=== PATIENT | female | born 1940 | race Caucasian/White ===

== ENCOUNTER 2017-01-02 18:20 | Inpatient (IN) | payer MEDICARE ==
[~2017-01-02] VITALS: Ht 170.2 cm; Wt 67.5 kg
[~2017-01-02 18:20] MED LIST: ATOR40TA68 PO; CARV6.2579 PO; FURO-110 PO; VALS40TA2 PO
[2017-01-02] MEDS ORDERED: FUROSEMIDE 40 MG INJ IV STA (19:49)
[2017-01-02 20:18] LABS: BASOPHILS % 0.5 % (0.0-2.0); EOSINOPHILS # 0.1 10^3/ul (0.0-0.5); EOSINOPHILS % 0.9 % (0.0-7.0); HEMATOCRIT 37.6 % (37.0-47.0); HEMOGLOBIN 11.9 g/dl (12.0-16.0); LYMPHOCYTES # 1.5 10^3/ul (0.8-2.9); LYMPHOCYTES % 20.2 % (15.0-51.0); MEAN CORPUSCULAR HEMOGLOBIN 28.2 pg (29.0-33.0); MEAN CORPUSCULAR HGB CONC 31.6 g/dl (32.0-37.0); MEAN CORPUSCULAR VOLUME 89.1 fl (82.0-101.0); MONOCYTE # 0.7 10^3/ul (0.3-0.9); MONOCYTES % 9.4 % (0.0-11.0); NEUTROPHIL # 5.2 10^3/ul (1.6-7.5); NEUTROPHILS % 68.7 % (39.0-77.0); PLATELET COUNT 155 10^3/UL (140-415); RED BLOOD COUNT 4.22 10^6/ul (4.20-5.40); RED CELL DISTRIBUTION WIDTH 18.2 % (11.5-14.5); WHITE BLOOD COUNT 7.5 10^3/ul (4.8-10.8)
[2017-01-02] MEDS ORDERED: CARV3.1260 PO (20:29)
[2017-01-02] MEDS ORDERED: AMIO200T2 PO (20:30)
[2017-01-02] MEDS ORDERED: VALS40TA2 PO (20:30)
[2017-01-02] MEDS ORDERED: LEVO100T87 PO (20:30)
[2017-01-02 20:41] LABS: INR 1.21; PROTIME 15.4 Sec (12.2-14.2); PT RATIO 1.2
[2017-01-02 20:42] LABS: PARTIAL THROMBOPLASTIN TIME 30.6 Sec (25.0-35.0)
[2017-01-02 20:45] LABS: ALANINE AMINOTRANSFERASE 38 IU/L (13-69); ALBUMIN 3.4 g/dl (3.3-4.9); ALBUMIN/GLOBULIN RATIO 1.21; ALKALINE PHOSPHATASE 98 IU/L (42-121); ANION GAP 21 (8-16); ASPARTATE AMINO TRANSFERASE 20 IU/L (15-46); BILIRUBIN,INDIRECT 0.5 mg/dl (0-1.1); BILIRUBIN,TOTAL 0.5 mg/dl (0.2-1.3); BLOOD UREA NITROGEN 48 mg/dl (7-20); CARBON DIOXIDE 21 mmol/L (21-31); CHLORIDE 101 mmol/L (97-110); CREATININE 2.24 mg/dl (0.44-1.00); GLUCOSE 101 mg/dl (70-220); POTASSIUM 4.6 mmol/L (3.5-5.1); SODIUM 138 mmol/L (135-144); TOTAL PROTEIN 6.2 g/dl (6.1-8.1)
[2017-01-02 20:57] LABS: TROPONIN-I < 0.012 ng/ml (0.00-0.12)
[2017-01-02 21:12] LABS: B-TYPE NATRIURETIC PEPTIDE 52000 PG/ML (0-125)
[2017-01-03] VITALS (10 sets, daily range): BP systolic 100–117; BP diastolic 74–93; PULSE 80–94; RESP 16–18; Ht 170.2 cm; Wt 67.5 kg
--- NOTE | 2017-01-03 02:22 | RADRPT ---
PROCEDURE: XR Chest. CLINICAL INDICATION: Chest pain TECHNIQUE: Portable single view of the chest COMPARISON: 05/17/2015 FINDINGS: Again seen is cardiomegaly with ectatic and tortuous aorta. Slight left base subsegmental atelectas is. Increased left base opacity may all be due to cardiomegaly or underlying airspace disease. . P ossible small left effusion. Small right pleural effusion is seen slight hazy infiltrate of the righ t lung base which could be due to early infectious infiltrate. IMPRESSION: Cardiomegaly. Slightly increased left retrocardiac opacity may all be due to cardiomegaly although underlying airspace disease cannot be completely excluded. Lateral view could be obtained if indica alex clinically. Question early right base infiltrate. Small right effusion and possible small left effusion. RPTAT: [facility]BE Physician Bob Date Time Electronically viewed and signed by Leonarda Nieto Physician on 01/03/2017 02:21 LE/
[2017-01-03] MEDS ORDERED: ONDANSETRON 4 MG INJ IV PRN (03:30)
[2017-01-03] MEDS ORDERED: ACETAMINOPHEN 325 MG TAB PO PRN (03:30)
[2017-01-03] MEDS ORDERED: NACL 0.9% 3 ML SYG IV SCH (03:30)
[2017-01-03] MEDS ORDERED: BISACODYL (EC) 5 MG TAB PO PRN (03:30)
[2017-01-03] MEDS ORDERED: DOCUSATE SODIUM 100 MG CAP PO PRN (03:30)
[2017-01-03] MEDS ORDERED: HEPARIN 5,000 UNIT/0.5 ML VIAL SC SCH (06:00)
[2017-01-03] MEDS: PANTOPRAZOLE 40 MG INJ IV SCH (06:01)
--- NOTE | 2017-01-03 07:28 | HP ---
Date/Time of Note Date/Time of Note DATE: 01/03/17 TIME: 07:12 Assessment/Plan VTE Prophylaxis VTE Prophylaxis Intervention: SCD's Lines/Catheters IV [facility]from [facility] Saline Lock Assessment/Plan Chief Complaint/Hosp Course This is a 76-year-old female being admitted to the telemetry floor for: #1 acute systolic CHF exacerbation: Patient's EKG is irregularly irregular with a left bundle branch block. BNP is 52,000. Patient's last echocardiogram on record was in 2014 with an EF of approximately 15%. At the current time will provide patient with IV diuresis. She states that over the last few days she has not been urinating much despite her home diuresis. Will add metolazone 2.5 mg to be given 30 minutes before Lasix. Will order a 2D echocardiogram. Will consult cardiology. She remains chest pain-free. Will trend cardiac enzymes. Will check a TSH and hemoglobin A1c. Continue amiodarone and carvedilol at this time. #2 acute on chronic kidney injury: Patient has creatinine above 2 her last creatinine was 0.88 in 2014. Will continue to monitor renal function while we initiate diuresis for her heart failure. Will consult nephrology for further treatment strategy. Will order renal ultrasound. As well as urine labs. #3 history of aortic dissection/aneurysm: Patient had a previous history which was medically managed there was recommendation for possible surgery in the past however patient was not deemed at that time to be stable secondary to her low ejection fraction. Will continue to monitor this at this time. Will order echocardiogram. May need further imaging studies to assess for current status of the previously found aneurysm. #4 hypertension: We will hold losartan for right now. #4 DVT and GI prophylaxis: Heparin subcu, protonix Further treatment strategy will be implemented as per the clinical course Problems: HPI/ROS Admit Date/Time Admit Date/Time Jan 03, 2017 at 03:25 Hx of Present Illness Chief complaint: Shortness of breath 1 week This is a 76-year-old female with a history of CHF as well as aortic dissection who presents to the ED with shortness of breath 1 week. Patient states she denies any chest pain. She has noticed that she has been getting more swollen in her lower extremities as well as her abdomen. She reports an approximate 20 pound weight gain over the last week or so in fluid. Allergies: Losartan, shellfish Medications: See Aug Const: As per HPI Eyes : No pain discharge or redness or change in visual acuity ENT: No pain, sore throat, congestion, congestion, dysphagia or discharge Respiratory: As per HPI Cardiovascular: As per HPI GI : As per HPI Genitourinary: No dysuria, hematuria, flank pain , discharge or CVA tenderness Musculoskeletal: No joint pain, back pain, neck pain, restricted range of motion in neck or joints Skin: No rash, bruising or hives Neuro: No headache, dizziness, syncope, seizure, focal weakness Endocrine: No polyuria, polydipsia, temperature intolerance Psych: No hallucination, depression, anxiety or suicidal ideation Vascular: As per HPI PMH/Family/Social Past Medical History CHF, 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 HEENT: Atraumatic, normocephalic. The pupils are equal, round and reactive. Extraocular motor are intact Neck: Supple with full range of motion. No rigidity or meningismus Chest: Nontender Lungs: Mild crackles at the lung bases, no wheezing, no respiratory distress. Heart: Normal S1-S2, Regular rhythm and rate. No murmur, S3, or S4 Abdomen: Soft, distended, normal bowel sounds, nontender to palpation. Extremities: 2+ pitting edema of the bilateral lower extremities from the feet up to the level of the villatoro Neurologic: Normal mental status, speech normal, cranial nerves II through XII are intact, motor and sensory are intact, no focal weakness Additional Comments PROCEDURE: XR Chest. CLINICAL INDICATION: Chest pain TECHNIQUE: Portable single view of the chest COMPARISON: 05/17/2015 FINDINGS: Again seen is cardiomegaly with ectatic and tortuous aorta. Slight left base subsegmental atelectasis. Increased left base opacity may all be due to cardiomegaly or underlying airspace disease. . Possible small left effusion. Small right pleural effusion is seen slight hazy infiltrate of the right lung base which could be due to early infectious infiltrate. IMPRESSION: Cardiomegaly. Slightly increased left retrocardiac opacity may all be due to cardiomegaly although underlying airspace disease cannot be completely excluded. Lateral view could be obtained if indicated clinically. Question early right base infiltrate. Small right effusion and possible small left effusion. Labs Result Diagram: 01/02/17 1950 01/02/17 1950 Medications Medications Current Medications Ondansetron HCl (Zofran Inj) 4 mg Q6H PRN IV NAUSEA AND/OR VOMITING; Start at 03:30 Acetaminophen (Tylenol Tab) 650 mg Q6H PRN PO PAIN LEVEL 1-3 OR FEVER; Start at 03:30 Docusate Sodium (Colace) 100 mg Q12H PRN PO CONSTIPATION; Start 01/03/17 at 03: 30 Bisacodyl (Dulcolax) 5 mg DAILY PRN PO CONSTIPATION; Start 01/03/17 at 03:30 Pantoprazole (Protonix Iv) 40 mg DAILY@06 IV Last administered on 01/03/17 06: 01; Admin Dose 40 MG; Start 01/03/17 at 06:00 Heparin Sodium (Porcine) (Heparin (5000 Units/0.5 ml)) 5,000 unit Q8 SC Last administered on 01/03/17 06:06; Admin Dose 5,000 UNIT; Start 01/03/17 at 06:00 Metolazone (Zaroxolyn) 2.5 mg DAILY PO ; Start 01/03/17 at 07:30 MINH SCHRADER Jan 03, 2017 07:24
[2017-01-03] MEDS: METOLAZONE 2.5 MG TAB PO SCH ×2 (08:16→09:00)
[2017-01-03 08:43] LABS: BASOPHILS % 0.6 % (0.0-2.0); EOSINOPHILS # 0.1 10^3/ul (0.0-0.5); EOSINOPHILS % 0.8 % (0.0-7.0); HEMATOCRIT 37.6 % (37.0-47.0); HEMOGLOBIN 12.1 g/dl (12.0-16.0); LYMPHOCYTES # 1.5 10^3/ul (0.8-2.9); LYMPHOCYTES % 22.8 % (15.0-51.0); MEAN CORPUSCULAR HEMOGLOBIN 28.7 pg (29.0-33.0); MEAN CORPUSCULAR HGB CONC 32.2 g/dl (32.0-37.0); MEAN CORPUSCULAR VOLUME 89.3 fl (82.0-101.0); MEAN PLATELET VOLUME 10.7 fl (7.4-10.4); MONOCYTE # 0.5 10^3/ul (0.3-0.9); MONOCYTES % 8.2 % (0.0-11.0); NEUTROPHIL # 4.4 10^3/ul (1.6-7.5); NEUTROPHILS % 67.1 % (39.0-77.0); PLATELET COUNT 148 10^3/UL (140-415); RED BLOOD COUNT 4.21 10^6/ul (4.20-5.40); RED CELL DISTRIBUTION WIDTH 17.7 % (11.5-14.5); WHITE BLOOD COUNT 6.6 10^3/ul (4.8-10.8)
[2017-01-03 08:55] LABS: CREATINE KINASE 45 IU/L (23-200)
[2017-01-03 08:59] LABS: ALBUMIN 2.9 g/dl (3.3-4.9); ALBUMIN/GLOBULIN RATIO 1.07; BILIRUBIN,INDIRECT 0.7 mg/dl (0-1.1); BILIRUBIN,TOTAL 0.7 mg/dl (0.2-1.3); CALCIUM 9.3 mg/dl (8.4-10.2); CHOL/HDL RATIO 4.8 RATIO; CREATININE 2.16 mg/dl (0.44-1.00); POTASSIUM 4.2 mmol/L (3.5-5.1); TOTAL PROTEIN 5.6 g/dl (6.1-8.1)
[2017-01-03 09:09] LABS: CK-MB 3.34 ng/ml (0.0-2.4)
[2017-01-03 09:13] LABS: TROPONIN-I < 0.012 ng/ml (0.00-0.12)
--- NOTE | 2017-01-03 09:44 | RADRPT ---
PROCEDURE: Retroperitoneal US. CLINICAL INDICATION: LINO TECHNIQUE: Multiple sonographic images of the retroperitoneum were obtained. The images were revi ewed on a PACS workstation. COMPARISON: Renal ultrasound from 05/11/2015 FINDINGS: The right kidney measures 8.8 cm. The left kidney measures 8.9 cm. The renal parenchymal echotexture is increased bilaterally. There is no hydronephrosis. There is no focal renal mass or calcification seen. There is a 1.8 cm simple cyst in the lower pole of the left kidney. There is a 1.3 cm simple cyst in the upper pole of the left kidney. There is a 1.3 cm simple cyst in the lower pole of the right kidney. There is a 1.6 cm simple cyst in the midpole of the right kidney. The bladder is grossly unremarkable. Mild ascites is incidentally noted. IMPRESSION: Atrophic and echogenic kidneys are again noted consistent with medical renal disease. Simple bilateral renal cysts measuring up to 1.6 cm on the right and 1.8 cm on the left. The bladder is grossly unremarkable. Mild ascites is incidentally noted. RPTAT: EE Physician Edgar Date Time Electronically viewed and signed by Physician Edgar on 01/03/2017 09:44 /
[2017-01-03] MEDS: FUROSEMIDE 40 MG INJ IV SCH ×2 (09:55→18:21)
[2017-01-03] MEDS: AMIODARONE 200 MG TAB PO SCH (09:56)
--- NOTE | 2017-01-03 10:22 | CONS ---
Date/Time of Note Date/Time of Note DATE: 01/03/17 TIME: 10:22 Assessment/Plan Assessment/Plan Additional Assessment/Plan 1. Acute kidney injury vs Acute kidney injury on CKD due to cardiorenal syndrome and hemodynamics 2. Acute CHF, acute on chronic, possibel systolic 3. Cardiomyopathy with EF 15%- ECHO in 2014 showed EF 15% 4. h/o aortic aneurysm/dissection 5. H/o CVA with left sided weakness 6. hypertension 7. Hyperlipidemia 8. atrial fibrillation plan: Continue lasix 40mg IV BID with metolazone ECHO and cardiology consutl has been orderd Urine studies including Urine sodium, urport/cr ratio, urine eosinophils, CK total, Uric acid pt likely has previous CKD but she was not aware about it Continue other meds we will continue to follow up on patient anticoagulation as per Primary and cardiology no ACEI/ARB at this time due to elevated creatinine- no previous baseline cr available, in 2014- pt Cr was fluctuating at low between 1.5 to 2.0- will monitor it in next 1-2 days thanks for consultation, will continue to follow up on patient, total time spent is more than 60minutes Consultation Date/Type/Reason Admit Date/Time Jan 03, 2017 at 03:25 Date of Consultation: Jan 03, 2017 Type of Consultation: NEPHROLOGY Reason for Consultation acute Kidney injury vs Acute kidney injury on CKD, cardiorenal syndrome Referring Provider: MINH SCHRADER Hx of Present Illness 76-year-old female with a history of CHF as well as aortic dissection who presents to the ED with shortness of breath 1 week. Patient states she denies any chest pain. She has noticed that she has been getting more swollen in her lower extremities as well as her abdomen. She reports an approximate 20 pound weight gain over the last week or so in fluid. as per patient she has never seen dry dip worker as outpatient, no H/o kidney cyst, no h/o kidney stone, no Famiily h/o CKD. no H/o NSAID use Constitutional: no complaints Eyes: no complaints ENT: no complaints Respiratory: shortness of breath, wheezing Cardiovascular: chest pain Gastrointestinal: no complaints Genitourinary: no complaints Musculoskeletal: no complaints, swelling Skin: no complaints Neurologic: no complaints Endocrine: no complaints Lymphatic: no complaints Psychological: no complaints Past Medical History Medical History: high cholesterol, hypertension, other (Cardiomyopathy with posible EF 15% as per patient , CAD s/p stent placement, anxiety, CVA with left sided weakness ) Past Surgical History Past Surgical Hx: other (right hip surgery ) Family History Significant Family History: no pertinent family hx, other (pt denies h/o CKD/ CAD/Stroke in family ) Social History Alcohol Use: none Smoking Status: Never smoker Drug Use: none Exam/Review of Systems Vital Signs Vitals Vital Signs Date Time Temp Pulse Resp B/P Pulse Ox O2 Delivery O2 Flow Rate FiO2 01/03/17 08:29 94 01/03/17 07:52 98.0 18 117/93 96 01/03/17 05:38 Nasal Cannula 2.0 Exam Constitutional: alert, oriented Psych: no complaints Head: normocephalic Eyes: nl conjunctiva ENMT: nl external ears & nose Neck: supple Respiratory: crackles/rales, diminished breath sounds Cardiovascular: irregular rhythm, regular rate and rhythm Gastrointestinal: non-tender, soft Genitourinary - Female: other (deferred) Musculoskeletal: nl extremities to inspection, other (1+ edema ) Extremities: normal pulses Neurological: 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 II-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 intact Skin: nl turgor Lymph: nl lymph nodes Results Result Diagram: 01/03/17 0825 01/03/17 0825 Results 24 hrs Laboratory Tests Test 01/02/17 19:50 01/03/17 07:46 01/03/17 08:25 White Blood Count 7.5 # 6.6 Red Blood Count 4.22 4.21 Hemoglobin 11.9 L 12.1 Hematocrit 37.6 37.6 Mean Corpuscular Volume 89.1 89.3 Mean Corpuscular Hemoglobin 28.2 L 28.7 L Mean Corpuscular Hemoglobin Concent 31.6 L 32.2 Red Cell Distribution Width 18.2 #H 17.7 H Platelet Count 155 148 Mean Platelet Volume 11.0 H 10.7 H Neutrophils % 68.7 67.1 Lymphocytes % 20.2 22.8 Monocytes % 9.4 8.2 Eosinophils % 0.9 0.8 Basophils % 0.5 0.6 Nucleated Red Blood Cells % 0.0 0.0 Neutrophils # 5.2 4.4 Lymphocytes # 1.5 1.5 Monocytes # 0.7 0.5 Eosinophils # 0.1 0.1 Basophils # 0.0 0.0 Nucleated Red Blood Cells # 0.0 0.0 Prothrombin Time 15.4 H Prothrombin Time Ratio 1.2 INR International Normalized Ratio 1.21 Activated Partial Thromboplast Time 30.6 Sodium Level 138 138 Potassium Level 4.6 4.2 Chloride Level 101 99 Carbon Dioxide Level 21 24 Anion Gap 21 H 19 H Blood Urea Nitrogen 48 H 50 H Creatinine 2.24 H 2.16 H Glucose Level 101 81 Calcium Level 9.0 9.3 Total Bilirubin 0.5 0.7 Direct Bilirubin 0.00 0.00 Indirect Bilirubin 0.5 0.7 Aspartate Amino Transf (AST/SGOT) 20 18 Alanine Aminotransferase (ALT/SGPT) 38 40 Alkaline Phosphatase 98 95 Troponin I < 0.012 < 0.012 B-Type Natriuretic Peptide 66150 H Total Protein 6.2 5.6 L Albumin 3.4 2.9 L Globulin 2.80 2.70 Albumin/Globulin Ratio 1.21 1.07 Lab Scanned Report LAB Hemoglobin A1c 6.3 H Magnesium Level 2.0 Creatine Kinase 45 Creatine Kinase Index 7.4 Creatinine Kinase MB (Mass) 3.34 H Triglycerides Level 85 Cholesterol Level 164 LDL Cholesterol, Calculated 113 HDL Cholesterol 34 Cholesterol/HDL Ratio 4.8 Thyroid Stimulating Hormone (TSH) Pending Medications Medications Current Medications Ondansetron HCl (Zofran Inj) 4 mg Q6H PRN IV NAUSEA AND/OR VOMITING; Start at 03:30 Acetaminophen (Tylenol Tab) 650 mg Q6H PRN PO PAIN LEVEL 1-3 OR FEVER; Start at 03:30 Docusate Sodium (Colace) 100 mg Q12H PRN PO CONSTIPATION; Start 01/03/17 at 03: 30 Bisacodyl (Dulcolax) 5 mg DAILY PRN PO CONSTIPATION; Start 01/03/17 at 03:30 Pantoprazole (Protonix Iv) 40 mg DAILY@06 IV Last administered on 01/03/17 06: 01; Admin Dose 40 MG; Start 01/03/17 at 06:00 Heparin Sodium (Porcine) (Heparin (5000 Units/0.5 ml)) 5,000 unit Q8 SC Last administered on 01/03/17 06:06; Admin Dose 5,000 UNIT; Start 01/03/17 at 06:00 Metolazone (Zaroxolyn) 2.5 mg DAILY PO Last administered on 01/03/17 08:16; Admin Dose 2.5 MG; Start 01/03/17 at 07:30 Amiodarone HCl (Cordarone) 200 mg DAILY PO Last administered on 01/03/17 09:56 ; Admin Dose 200 MG; Start 01/03/17 at 09:00 Carvedilol (Coreg) 3.125 mg BID PO Last administered on 01/03/17 09:55; Admin Dose 3.125 MG; Start 01/03/17 at 09:00 TONIA GREGORY MD Jan 03, 2017 10:22
[2017-01-03] MEDS: APIXABAN 5 MG TABLET PO SCH ×2 (11:09→20:40)
[2017-01-03 12:05] LABS: THYROID STIMULATING HORMONE 14.4 MIU/L (0.465-4.680)
--- NOTE | 2017-01-03 12:34 | RADRPT ---
PROCEDURE: XR Chest. CLINICAL INDICATION: Abnormal chest x-ray TECHNIQUE: PA and Lateral views of the chest were obtained. COMPARISON: Chest x-ray 01/02/2017 and CTA chest 05/09/2015 FINDINGS: The cardiac silhouette is moderately enlarged. Again seen is aneurysmal dilatation of the thoracic aorta with related rightward tracheal deviation, not significantly changed compared to prior chest x-ray of 01/02/2017. Patchy ill-defined left retrocardiac opacities persist and may represent a small partially layering left pleural effusion, atelectasis, and / or consolidation. Minimal right basilar atelectasis process. There is no evidence of significant pulmonary vascular congestion. There are degenerative changes of the visualized spine. IMPRESSION: 1. Thoracic aortic aneurysmal dilatation, not significantly changed compared to immediate prior ches t x-ray of 01/02/2017. Direct comparison with prior CT chest of 05/09/2015 is difficult due to diffe rences in technique/modality. 2. Moderate cardiomegaly. 3. No significant change in patchy ill-defined left retrocardiac opacities which may represent atel ectasis, consolidation, and / or small partially layering left pleural effusion. RPTAT: PP Physician Debbie Date Time Electronically viewed and signed by Physician Debbie on 01/03/2017 12:34 /
[2017-01-03 13:06] LABS: CREATINE KINASE 43 IU/L (23-200)
[2017-01-03 13:18] LABS: CK-MB 3.03 ng/ml (0.0-2.4)
[2017-01-03 13:21] LABS: TROPONIN-I < 0.012 ng/ml (0.00-0.12)
[2017-01-03 13:37] LABS: UR BILIRUBIN (Dip) NEGATIVE (NEGATIVE); UR BLOOD (Dip) 1+ mg/dL (NEGATIVE); UR CLARITY CLOUDY (CLEAR); UR COLOR YELLOW (YELLOW); UR GLUCOSE (Dip) NEGATIVE (NEGATIVE); UR KETONES (Dip) NEGATIVE (NEGATIVE); UR SPECIFIC GRAVITY (Dip) 1.008 (1.003-1.030); UR TOTAL PROTEIN (Dip) NEGATIVE (NEGATIVE)
[2017-01-03 13:38] LABS: ADD UMIC YES; UR AMORPHOUS CRYSTAL MODERATE /HPF (NONE SEEN); UR ASCORBIC ACID NEGATIVE (NEGATIVE); UR BACTERIA FEW /HPF (NONE SEEN); UR LEUKOCYTE ESTERASE (Dip) 3+ Leu/ul (NEGATIVE); UR MUCUS FEW /HPF (NONE SEEN); UR NITRITE (Dip) POSITIVE (NEGATIVE); UR RBC 3 /HPF (0-5); UR SQUAMOUS EPITHELIAL CELL MANY /HPF (FEW); UR UROBILINOGEN (Dip) NEGATIVE (NEGATIVE)
[2017-01-03 13:59] LABS: PROTEIN/CREAT RATIO 0.31 RATIO
--- NOTE | 2017-01-03 14:32 | CONS ---
Date/Time of Note Date/Time of Note DATE: 01/03/17 TIME: 14:22 Assessment/Plan Assessment/Plan Additional Assessment/Plan Acute decompensated systolic congestive heart failure History of severe cardio myopathy Acute on chronic kidney injury Aortic aneurysm with history of chronic dissection Atrial fibrillation -Patient with improvement in symptoms since on IV Lasix therapy. We will continue diuretics as per our nephrology colleagues. Ideally maintain potassium above 4.0 and magnesium above 2.0 to decrease arrhythmias. ARB currently on hold likely secondary to worsening renal function. If blood pressure tolerates, would start afterload reducing agent in the next 1-2 days. Continue telemetry monitoring. Consultation Date/Type/Reason Admit Date/Time Jan 03, 2017 at 03:25 Type of Consultation: cv Reason for Consultation Shortness of breath and weight gain Hx of Present Illness This is a 76-year-old female with known past medical history of severe cardiomyopathy, aortic aneurysm with history of type B dissection, labile blood pressure who presents with increased lower extremity edema, weight gain and shortness of breath progressing over the past 10 days. Patient states she has been compliant with her medication regimen. Patient also symptoms of lightheadedness with standing up at times and occasional dizziness. Because of the above, patient came to the emergency room for further evaluation and care. Her symptoms have improved with IV diuresis. She denies paroxysmal nocturnal dyspnea. Shortness of breath is worse with exertion. He denies any chest pain , palpitations. 12 point review of systems was performed with all pertinent positives and negatives mentioned above and all else is negative Constitutional: no complaints Eyes: no complaints ENT: no complaints Respiratory: shortness of breath, wheezing Cardiovascular: chest pain Gastrointestinal: no complaints Genitourinary: no complaints Musculoskeletal: no complaints, swelling Skin: no complaints Neurologic: no complaints Endocrine: no complaints Lymphatic: no complaints Psychological: no complaints Past Medical History Aortic aneurysm Medical History: congestive heart failure, high cholesterol, hypertension, other Past Surgical History Past Surgical Hx: other (right hip surgery ) Social History Alcohol Use: none Smoking Status: Never smoker Drug Use: none Exam/Review of Systems Vital Signs Vitals Vital Signs Date Time Temp Pulse Resp B/P Pulse Ox O2 Delivery O2 Flow Rate FiO2 01/03/17 12:18 84 01/03/17 11:26 97.3 17 101/86 92 01/03/17 05:38 Nasal Cannula 2.0 Exam No apparent distress, no dyspnea with speaking, family at bedside Constitutional: alert, frail, oriented Head: normocephalic Neck: supple Respiratory: other (Coarse breath sounds bilaterally and decreased at the bases , no wheezing) Cardiovascular: irregular rhythm, other (S1-S2 heard), systolic murmur Gastrointestinal: bowel sounds, non-tender, soft Extremities: edema Results Result Diagram: 01/03/17 0825 01/03/17 0825 Results 24 hrs Laboratory Tests Test 01/02/17 19:50 01/03/17 07:46 01/03/17 08:25 01/03/17 10:52 White Blood Count 7.5 # 6.6 Red Blood Count 4.22 4.21 Hemoglobin 11.9 L 12.1 Hematocrit 37.6 37.6 Mean Corpuscular Volume 89.1 89.3 Mean Corpuscular Hemoglobin 28.2 L 28.7 L Mean Corpuscular Hemoglobin Concent 31.6 L 32.2 Red Cell Distribution Width 18.2 #H 17.7 H Platelet Count 155 148 Mean Platelet Volume 11.0 H 10.7 H Neutrophils % 68.7 67.1 Lymphocytes % 20.2 22.8 Monocytes % 9.4 8.2 Eosinophils % 0.9 0.8 Basophils % 0.5 0.6 Nucleated Red Blood Cells % 0.0 0.0 Neutrophils # 5.2 4.4 Lymphocytes # 1.5 1.5 Monocytes # 0.7 0.5 Eosinophils # 0.1 0.1 Basophils # 0.0 0.0 Nucleated Red Blood Cells # 0.0 0.0 Prothrombin Time 15.4 H Prothrombin Time Ratio 1.2 INR International Normalized Ratio 1.21 Activated Partial Thromboplast Time 30.6 Sodium Level 138 138 Potassium Level 4.6 4.2 Chloride Level 101 99 Carbon Dioxide Level 21 24 Anion Gap 21 H 19 H Blood Urea Nitrogen 48 H 50 H Creatinine 2.24 H 2.16 H Glucose Level 101 81 Calcium Level 9.0 9.3 Total Bilirubin 0.5 0.7 Direct Bilirubin 0.00 0.00 Indirect Bilirubin 0.5 0.7 Aspartate Amino Transf (AST/SGOT) 20 18 Alanine Aminotransferase (ALT/SGPT) 38 40 Alkaline Phosphatase 98 95 Troponin I < 0.012 < 0.012 B-Type Natriuretic Peptide 50800 H Total Protein 6.2 5.6 L Albumin 3.4 2.9 L Globulin 2.80 2.70 Albumin/Globulin Ratio 1.21 1.07 Lab Scanned Report LAB Hemoglobin A1c 6.3 H Magnesium Level 2.0 Creatine Kinase 45 Creatine Kinase Index 7.4 Creatinine Kinase MB (Mass) 3.34 H Triglycerides Level 85 Cholesterol Level 164 LDL Cholesterol, Calculated 113 HDL Cholesterol 34 Cholesterol/HDL Ratio 4.8 Thyroid Stimulating Hormone (TSH) 14.400 H Urine Color YELLOW Urine Clarity CLOUDY A Urine pH 5.0 Urine Specific Freeborn 1.008 Urine Ketones NEGATIVE Urine Nitrite POSITIVE A Urine Bilirubin NEGATIVE Urine Urobilinogen NEGATIVE Urine Leukocyte Esterase 3+ H Urine Microscopic RBC 3 Urine Microscopic WBC 37 H Urine Squamous Epithelial Cells MANY A Urine Amorphous Crystals MODERATE Urine Bacteria FEW A Urine Mucus FEW A Urine Eosinophils % 0.0 Urine Hemoglobin 1+ H Urine Osmolality 331 Urine Random Creatinine 41.70 Urine Random Sodium 95 H Urine Protein/Creatinine Ratio 0.31 Urine Glucose NEGATIVE Urine Total Protein 13.0 H Test 01/03/17 12:17 Creatine Kinase 43 Creatine Kinase Index 7.0 Creatinine Kinase MB (Mass) 3.03 H Troponin I < 0.012 Medications Medications Current Medications Ondansetron HCl (Zofran Inj) 4 mg Q6H PRN IV NAUSEA AND/OR VOMITING; Start at 03:30 Acetaminophen (Tylenol Tab) 650 mg Q6H PRN PO PAIN LEVEL 1-3 OR FEVER; Start at 03:30 Docusate Sodium (Colace) 100 mg Q12H PRN PO CONSTIPATION; Start 01/03/17 at 03: 30 Bisacodyl (Dulcolax) 5 mg DAILY PRN PO CONSTIPATION; Start 01/03/17 at 03:30 Pantoprazole (Protonix Iv) 40 mg DAILY@06 IV Last administered on 01/03/17 06: 01; Admin Dose 40 MG; Start 01/03/17 at 06:00 Metolazone (Zaroxolyn) 2.5 mg DAILY PO Last administered on 01/03/17 08:16; Admin Dose 2.5 MG; Start 01/03/17 at 07:30 Amiodarone HCl (Cordarone) 200 mg DAILY PO Last administered on 01/03/17 09:56 ; Admin Dose 200 MG; Start 01/03/17 at 09:00 Carvedilol (Coreg) 3.125 mg BID PO Last administered on 01/03/17 09:55; Admin Dose 3.125 MG; Start 01/03/17 at 09:00 Apixaban (Eliquis) 2.5 mg BID PO Last administered on 01/03/17 11:09; Admin Dose 2.5 MG; Start 01/03/17 at 10:30 Procedures Procedures ECG demonstrates atrial fibrillation at 89 bpm, left bundle branch block, nonspecific STT wave abnormalities Rubén Pettit DO Jan 03, 2017 14:32
--- NOTE | 2017-01-03 15:04 | RADRPT ---
Echocardiogram Report Patient Name: JENNIFER MOHAN Gender: Female Date: 1940 Study Date: 03-Jan-2017 Illustrator Set: Maya Gale [facility] Location: 512 Ref. Physician: MINH SCHRADER Quality: Good Procedures: Transthoracic echocardiogram with complete 2D, M-Mode, and doppler examination. Indications: Congestive Heart Failure exacerbation. 2D/M Mode Doppler Measurement Value Normal Ranges Measurement Value Normal Ranges LVIDd 2D 4.3 3.5 - 5.6 cm AV Peak Nic 1.4 m/sec LVIDs 2D 4.3 2.1 - 4.1 cm AV Peak PG 8.0 mmHg LVPWd 2D 1.4 0.6 - 1.1 cm AI Peak PG 97.9 mmHg IVSd 2D 1.5 0.6 - 1.1 cm AI Peak Nic 4.9 m/sec EDV 2D 85.0 cm3 AI PHT 340.7 msec ESV 2D 80.9 cm3 LVOT Peak Nic 1.3 m/sec LA Dimen 2D 4.3 2.3 - 4.0 cm LVOT Peak PG 6.5 mmHg MV E Peak Nic 0.7 m/sec MV A Peak Nic 0.3 m/sec MV E/A 2.1 MV Decel Time 127 msec MV Decel Coffey 6 MV E/A 2.1 TR Peak Nic 4.2 m/sec TR Peak PG 69.7 mmHg RVSP 85.0 mmHg Findings Left Ventricle: Moderate concentric left ventricular hypertrophy. Mild to moderate enlargement of left ventricle cavity. Severe left ventricular systolic dysfunction. Ejection fraction is visually estimated at 20 %. Abnormal Diastolic Function. Right Ventricle: Normal right ventricular size. Mild right ventricular hypokinesis. Left Atrium: There is mild enlargement of left atrium. Right Atrium: There is severe enlargement of right atrium. Mitral Valve: Mitral valve leaflets appear mildly thickened. Mild mitral annular calcification. Moderate mitral valve regurgitation. The regurgitation jet is eccentrically directed which may underestimate the severity of mitral regurgitation. Aortic Valve: No hemodynamically significant aortic stenosis by doppler. Aortic cusps appear mildly calcified. Moderate aortic valve regurgitation. Tricuspid Valve: Normal appearance of the tricuspid valve. Estimated peak PA systolic pressure 85 mmHg. Tricuspid valve appears mildly thickened. There is moderate to severe tricuspid regurgitation. Pulmonic Valve: Normal pulmonic valve appearance. There is trace pulmonic regurgitation. Pericardium: Normal pericardium with no significant pericardial effusion. Left pleural effusion seen. Aorta: Ascending aorta is dilated. IVC: Dilated IVC without respiratory collapse consistent with elevated right atrial pressure. Conclusions Moderate concentric left ventricular hypertrophy. Mild to moderate enlargement of left ventricle cavity. Severe left ventricular systolic dysfunction. Ejection fraction is visually estimated at 20 %. Abnormal Diastolic Function. Normal right ventricular size. Mild right ventricular hypokinesis. There is mild enlargement of left atrium. There is severe enlargement of right atrium. Moderate mitral valve regurgitation. The regurgitation jet is eccentrically directed which may underestimate the severity of mitral regurgitation. No hemodynamically significant aortic stenosis by doppler. Moderate aortic valve regurgitation. Estimated peak PA systolic pressure 85 mmHg. There is moderate to severe tricuspid regurgitation. Ascending aorta is dilated. Normal pericardium with no significant pericardial effusion. Left pleural effusion seen. Electronically Signed By: Rubén Pettit 03-Jan-2017 15:02:51 -0700 Patient Name: JENNIFER MOHAN Study Date: 03-Jan-2017 [id number]
[2017-01-04] VITALS (12 sets, daily range): BP systolic 96–120; BP diastolic 58–76; PULSE 69–86; RESP 17–20
[2017-01-04] MEDS: LEVOTHYROXINE 100 MCG TAB PO SCH (06:06)
[2017-01-04] MEDS: FUROSEMIDE 40 MG INJ IV SCH ×2 (06:07→18:19)
[2017-01-04] MEDS: PANTOPRAZOLE 40 MG INJ IV SCH (06:07)
[2017-01-04 08:14] LABS: BASOPHIL # 0.1 10^3/ul (0.0-0.1); BASOPHILS % 0.9 % (0.0-2.0); EOSINOPHILS # 0.1 10^3/ul (0.0-0.5); EOSINOPHILS % 1.6 % (0.0-7.0); HEMATOCRIT 37.2 % (37.0-47.0); HEMOGLOBIN 11.9 g/dl (12.0-16.0); LYMPHOCYTES # 1.5 10^3/ul (0.8-2.9); LYMPHOCYTES % 22.8 % (15.0-51.0); MEAN CORPUSCULAR HEMOGLOBIN 28.3 pg (29.0-33.0); MEAN CORPUSCULAR VOLUME 88.6 fl (82.0-101.0); MEAN PLATELET VOLUME 11.4 fl (7.4-10.4); MONOCYTE # 0.5 10^3/ul (0.3-0.9); MONOCYTES % 8.3 % (0.0-11.0); NEUTROPHIL # 4.2 10^3/ul (1.6-7.5); NEUTROPHILS % 65.9 % (39.0-77.0); PLATELET COUNT 166 10^3/UL (140-415); WHITE BLOOD COUNT 6.4 10^3/ul (4.8-10.8)
[2017-01-04 08:38] LABS: URIC ACID 13.1 mg/dl (3.1-7.9)
[2017-01-04 08:49] LABS: CALCIUM 9.1 mg/dl (8.4-10.2); CREATININE 2.31 mg/dl (0.44-1.00); POTASSIUM 4.2 mmol/L (3.5-5.1)
[2017-01-04] MEDS: METOLAZONE 2.5 MG TAB PO SCH (10:14)
[2017-01-04] MEDS: AMIODARONE 200 MG TAB PO SCH (10:14)
[2017-01-04] MEDS: APIXABAN 5 MG TABLET PO SCH ×2 (10:16→20:25)
[2017-01-04] MEDS ORDERED: BUMETANIDE 6 MG in DEXTROSE 5% 36 ML IV ONE (12:00)
--- NOTE | 2017-01-04 12:37 | CONS ---
Date/Time of Note Date/Time of Note DATE: 01/04/17 TIME: 12:35 Assessment/Plan Assessment/Plan Additional Assessment/Plan 1. Acute kidney injury vs Acute kidney injury on CKD due to cardiorenal syndrome and hemodynamics 2. Acute CHF, acute on chronic, possibel systolic 3. Cardiomyopathy with EF 15%- ECHO in 2014 showed EF 15% 4. h/o aortic aneurysm/dissection 5. H/o CVA with left sided weakness 6. hypertension 7. Hyperlipidemia 8. atrial fibrillation plan: Continue lasix 40mg IV BID, d/c metolazone to avoid overdiuresis ECHO showed EF 20% Renal Us showed bilateral renal simple cysts and C/w medical renal disease anticoagulation as per Primary and cardiology no ACEI/ARB at this time due to elevated creatinine- no previous baseline cr available, in 2014- pt Cr was fluctuating at low between 1.5 to 2.0- will monitor it in next 1-2 days and will consider ACEI/ARB after diuresis will continue to follow up on patient Consultation Date/Type/Reason Admit Date/Time Jan 03, 2017 at 03:25 Initial Consult Date 01/03/17 Type of Consultation: NEPHROLOGY Reason for Consultation Acute on chronic renal failure Referring Provider: MINH SCHRADER 24 HR Interval Summary Free Text/Dictation with IV lasix and metolazone, pt made good urine ouput, Cr slightly bumped Exam/Review of Systems Vital Signs Vitals Vital Signs Date Time Temp Pulse Resp B/P Pulse Ox O2 Delivery O2 Flow Rate FiO2 01/04/17 12:17 75 01/04/17 11:24 97.6 18 96/67 96 01/03/17 05:38 Nasal Cannula 2.0 Intake and Output 01/03/17 01/03/17 01/04/17 15:00 23:00 07:00 Intake Total 850 ml 300 ml Output Total 750 ml 1000 ml Balance 100 ml -700 ml Exam Constitutional: alert, oriented Psych: no complaints Head: normocephalic Eyes: nl conjunctiva ENMT: nl external ears & nose Neck: supple Respiratory: crackles/rales, diminished breath sounds Cardiovascular: irregular rhythm, regular rate and rhythm Gastrointestinal: non-tender, soft Genitourinary - Female: other (deferred) Musculoskeletal: nl extremities to inspection, other (1+ edema ) Extremities: normal pulses 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 Skin: nl turgor Lymph: nl lymph nodes Results Result Diagram: 01/04/17 0728 01/04/17 0728 Results 24 hrs Laboratory Tests Test 01/03/17 14:27 01/04/17 07:28 Osmolality 295 White Blood Count 6.4 Red Blood Count 4.20 Hemoglobin 11.9 L Hematocrit 37.2 Mean Corpuscular Volume 88.6 Mean Corpuscular Hemoglobin 28.3 L Mean Corpuscular Hemoglobin Concent 32.0 Red Cell Distribution Width 18.0 H Platelet Count 166 Mean Platelet Volume 11.4 H Neutrophils % 65.9 Lymphocytes % 22.8 Monocytes % 8.3 Eosinophils % 1.6 Basophils % 0.9 Nucleated Red Blood Cells % 0.0 Neutrophils # 4.2 Lymphocytes # 1.5 Monocytes # 0.5 Eosinophils # 0.1 Basophils # 0.1 Nucleated Red Blood Cells # 0.0 Sodium Level 137 Potassium Level 4.2 Chloride Level 100 Carbon Dioxide Level 24 Anion Gap 17 H Blood Urea Nitrogen 52 H Creatinine 2.31 H Glucose Level 79 Uric Acid 13.1 H Calcium Level 9.1 Magnesium Level 1.9 Creatine Kinase 30 Medications Medications Current Medications Ondansetron HCl (Zofran Inj) 4 mg Q6H PRN IV NAUSEA AND/OR VOMITING; Start at 03:30 Acetaminophen (Tylenol Tab) 650 mg Q6H PRN PO PAIN LEVEL 1-3 OR FEVER; Start at 03:30 Docusate Sodium (Colace) 100 mg Q12H PRN PO CONSTIPATION; Start 01/03/17 at 03: 30 Bisacodyl (Dulcolax) 5 mg DAILY PRN PO CONSTIPATION; Start 01/03/17 at 03:30 Pantoprazole (Protonix Iv) 40 mg DAILY@06 IV Last administered on 01/04/17 06: 07; Admin Dose 40 MG; Start 01/03/17 at 06:00 Amiodarone HCl (Cordarone) 200 mg DAILY PO Last administered on 01/04/17 10:14 ; Admin Dose 200 MG; Start 01/03/17 at 09:00 Carvedilol (Coreg) 3.125 mg BID PO Last administered on 01/04/17 10:14; Admin Dose 3.125 MG; Start 01/03/17 at 09:00 Apixaban 2.5 mg 2.5 mg BID PO Last administered on 01/04/17t 10:16; Admin Dose 2.5 MG; Start 01/03/17 at 10:30 Bumetanide/ Dextrose (Bumex/D5W) 60 ml @ 10 mls/hr Q6H ONCE IV ; Start 01/04/17 at 12:00; Stop 01/04/17 at 17:59 TONIA GREGORY MD Jan 04, 2017 12:37
--- NOTE | 2017-01-04 15:55 | PN ---
Date/Time of Note Date/Time of Note DATE: 01/04/17 TIME: 15:50 Assessment/Plan VTE Prophylaxis VTE Prophylaxis Intervention: LMWH Lines/Catheters IV Catheter Type (from Nrs): Saline Lock Urinary Cath still in place: Yes Reason Cath still needed: urinary retention Assessment/Plan Chief Complaint/Hosp Course 76 yo female with h/o NICM chronic systolic CHF presenting wtih acute on chronic CHF exacerbation and LINO Acute on chronic CHF exacerbation: - Continue IV lasix to euvolemia, many liters to go - BB, AILYN/dominique if renal function improved/stable LINO vs CKD III - Monitor creatinine, no clear etiology Discharge when euvolemic Problems: Subjective 24 Hr Interval Summary Free Text/Dictation Doing better she says Breathing more comfortably Diuresing well Exam/Review of Systems Vital Signs Vitals Vital Signs Date Time Temp Pulse Resp B/P Pulse Ox O2 Delivery O2 Flow Rate FiO2 01/04/17 15:09 97.9 65 18 103/66 96 01/03/17 05:38 Nasal Cannula 2.0 Intake and Output 01/03/17 01/03/17 01/04/17 15:00 23:00 07:00 Intake Total 850 ml 300 ml Output Total 750 ml 1000 ml Balance 100 ml -700 ml Exam Breathing comfotably, nonlabored AOx3, well appearing ++JVD, RRR Clear lungs bilaterally Ext wtih edema to calves b/l Results Result Diagram: 01/04/1728 01/04/17727 Results 24 hrs Laboratory Tests Test 01/04/17 07:28 White Blood Count 6.4 Red Blood Count 4.20 Hemoglobin 11.9 L Hematocrit 37.2 Mean Corpuscular Volume 88.6 Mean Corpuscular Hemoglobin 28.3 L Mean Corpuscular Hemoglobin Concent 32.0 Red Cell Distribution Width 18.0 H Platelet Count 166 Mean Platelet Volume 11.4 H Neutrophils % 65.9 Lymphocytes % 22.8 Monocytes % 8.3 Eosinophils % 1.6 Basophils % 0.9 Nucleated Red Blood Cells % 0.0 Neutrophils # 4.2 Lymphocytes # 1.5 Monocytes # 0.5 Eosinophils # 0.1 Basophils # 0.1 Nucleated Red Blood Cells # 0.0 Sodium Level 137 Potassium Level 4.2 Chloride Level 100 Carbon Dioxide Level 24 Anion Gap 17 H Blood Urea Nitrogen 52 H Creatinine 2.31 H Glucose Level 79 Uric Acid 13.1 H Calcium Level 9.1 Magnesium Level 1.9 Creatine Kinase 30 Medications Medications Current Medications Ondansetron HCl (Zofran Inj) 4 mg Q6H PRN IV NAUSEA AND/OR VOMITING; Start at 03:30 Acetaminophen (Tylenol Tab) 650 mg Q6H PRN PO PAIN LEVEL 1-3 OR FEVER; Start at 03:30 Docusate Sodium (Colace) 100 mg Q12H PRN PO CONSTIPATION; Start 01/03/17 at 03: 30 Bisacodyl (Dulcolax) 5 mg DAILY PRN PO CONSTIPATION; Start 01/03/17 at 03:30 Pantoprazole (Protonix Iv) 40 mg DAILY@06 IV Last administered on 01/04/17 06: 07; Admin Dose 40 MG; Start 01/03/17 at 06:00 Amiodarone HCl (Cordarone) 200 mg DAILY PO Last administered on 01/04/17 10:14 ; Admin Dose 200 MG; Start 01/03/17 at 09:00 Carvedilol (Coreg) 3.125 mg BID PO Last administered on 01/04/17 10:14; Admin Dose 3.125 MG; Start 01/03/17 at 09:00 Apixaban (Eliquis) 2.5 mg BID PO Last administered on 01/04/17 10:16; Admin Dose 2.5 MG; Start 01/03/17 at 10:30 SYDNIE ALONSO MD Jan 04, 2017 15:55
--- NOTE | 2017-01-04 17:36 | CONS ---
Date/Time of Note Date/Time of Note DATE: 01/04/17 TIME: 17:34 Assessment/Plan Assessment/Plan Additional Assessment/Plan Acute decompensated systolic congestive heart failure History of severe cardiomyopathy with ejection fraction 20% Acute on chronic kidney injury Aortic aneurysm with history of chronic dissection Atrial fibrillation -Patient with improvement in symptoms since on IV Lasix therapy. We will continue diuretics as per our nephrology colleagues. Ideally maintain potassium above 4.0 and magnesium above 2.0 to decrease arrhythmias. Will supplement magnesium. ARB currently on hold likely secondary to worsening renal function. If blood pressure tolerates, would start afterload reducing agent in the next 1-2 days. Continue telemetry monitoring. Consultation Date/Type/Reason Admit Date/Time Jan 03, 2017 at 03:25 Initial Consult Date 01/03/17 Type of Consultation: cv Referring Provider: MINH SCHRADER 24 HR Interval Summary Free Text/Dictation Shortness of breath has improved with diuretics, denies dizziness Exam/Review of Systems Vital Signs Vitals Vital Signs Date Time Temp Pulse Resp B/P Pulse Ox O2 Delivery O2 Flow Rate FiO2 01/04/17 16:28 70 01/04/17 15:09 97.9 18 103/66 96 01/03/17 05:38 Nasal Cannula 2.0 Intake and Output 01/03/17 01/03/17 01/04/17 15:00 23:00 07:00 Intake Total 850 ml 300 ml Output Total 750 ml 1000 ml Balance 100 ml -700 ml Exam No apparent distress Constitutional: alert, frail, oriented Head: normocephalic Respiratory: other (Coarse breath sounds bilaterally, no wheezing) Cardiovascular: irregular rhythm, other (S1-S2 heard), systolic murmur Gastrointestinal: bowel sounds, non-tender, soft Extremities: edema Results Result Diagram: 01/04/17 0728 01/04/1728 Results 24 hrs Laboratory Tests Test 01/04/17 07:28 White Blood Count 6.4 Red Blood Count 4.20 Hemoglobin 11.9 L Hematocrit 37.2 Mean Corpuscular Volume 88.6 Mean Corpuscular Hemoglobin 28.3 L Mean Corpuscular Hemoglobin Concent 32.0 Red Cell Distribution Width 18.0 H Platelet Count 166 Mean Platelet Volume 11.4 H Neutrophils % 65.9 Lymphocytes % 22.8 Monocytes % 8.3 Eosinophils % 1.6 Basophils % 0.9 Nucleated Red Blood Cells % 0.0 Neutrophils # 4.2 Lymphocytes # 1.5 Monocytes # 0.5 Eosinophils # 0.1 Basophils # 0.1 Nucleated Red Blood Cells # 0.0 Sodium Level 137 Potassium Level 4.2 Chloride Level 100 Carbon Dioxide Level 24 Anion Gap 17 H Blood Urea Nitrogen 52 H Creatinine 2.31 H Glucose Level 79 Uric Acid 13.1 H Calcium Level 9.1 Magnesium Level 1.9 Creatine Kinase 30 Medications Medications Current Medications Ondansetron HCl (Zofran Inj) 4 mg Q6H PRN IV NAUSEA AND/OR VOMITING; Start at 03:30 Acetaminophen (Tylenol Tab) 650 mg Q6H PRN PO PAIN LEVEL 1-3 OR FEVER; Start at 03:30 Docusate Sodium (Colace) 100 mg Q12H PRN PO CONSTIPATION; Start 01/03/17 at 03: 30 Bisacodyl (Dulcolax) 5 mg DAILY PRN PO CONSTIPATION; Start 01/03/17 at 03:30 Pantoprazole (Protonix Iv) 40 mg DAILY@06 IV Last administered on 01/04/17 06: 07; Admin Dose 40 MG; Start 01/03/17 at 06:00 Amiodarone HCl (Cordarone) 200 mg DAILY PO Last administered on 01/04/17 10:14 ; Admin Dose 200 MG; Start 01/03/17 at 09:00 Carvedilol (Coreg) 3.125 mg BID PO Last administered on 01/04/17 10:14; Admin Dose 3.125 MG; Start 01/03/17 at 09:00 Apixaban (Eliquis) 2.5 mg BID PO Last administered on 01/04/17 10:16; Admin Dose 2.5 MG; Start 01/03/17 at 10:30 Rubén Pettit DO Jan 04, 2017 17:36
[2017-01-04] MEDS ORDERED: FUROSEMIDE 40 MG INJ IV SCH (18:00)
[2017-01-04] MEDS ORDERED: MAGNESIUM SULFATE 1 GM/D5W 100 ML IVPB ONE (18:30)
[2017-01-05] VITALS (12 sets, daily range): BP systolic 106–116; BP diastolic 67–80; PULSE 61–75; RESP 19–20
[2017-01-05] MEDS: PANTOPRAZOLE 40 MG INJ IV SCH (06:24)
[2017-01-05] MEDS: LEVOTHYROXINE 100 MCG TAB PO SCH (06:24)
[2017-01-05] MEDS: FUROSEMIDE 40 MG INJ IV SCH ×2 (06:27→17:35)
[2017-01-05 08:01] LABS: BASOPHIL # 0.1 10^3/ul (0.0-0.1); BASOPHILS % 0.9 % (0.0-2.0); EOSINOPHILS # 0.1 10^3/ul (0.0-0.5); HEMATOCRIT 36.9 % (37.0-47.0); HEMOGLOBIN 11.9 g/dl (12.0-16.0); LYMPHOCYTES # 1.5 10^3/ul (0.8-2.9); LYMPHOCYTES % 22.2 % (15.0-51.0); MEAN CORPUSCULAR HEMOGLOBIN 28.6 pg (29.0-33.0); MEAN CORPUSCULAR HGB CONC 32.2 g/dl (32.0-37.0); MEAN CORPUSCULAR VOLUME 88.7 fl (82.0-101.0); MEAN PLATELET VOLUME 11.3 fl (7.4-10.4); MONOCYTE # 0.6 10^3/ul (0.3-0.9); MONOCYTES % 9.2 % (0.0-11.0); NEUTROPHIL # 4.3 10^3/ul (1.6-7.5); NEUTROPHILS % 65.2 % (39.0-77.0); PLATELET COUNT 171 10^3/UL (140-415); RED BLOOD COUNT 4.16 10^6/ul (4.20-5.40); RED CELL DISTRIBUTION WIDTH 17.9 % (11.5-14.5); WHITE BLOOD COUNT 6.6 10^3/ul (4.8-10.8)
[2017-01-05 08:33] LABS: MAGNESIUM 1.9 mg/dl (1.7-2.5); PHOSPHORUS 4.2 mg/dl (2.5-4.9)
[2017-01-05] MEDS: AMIODARONE 200 MG TAB PO SCH (08:36)
[2017-01-05 08:37] LABS: CALCIUM 8.8 mg/dl (8.4-10.2); CREATININE 2.16 mg/dl (0.44-1.00); POTASSIUM 3.9 mmol/L (3.5-5.1)
[2017-01-05] MEDS: APIXABAN 5 MG TABLET PO SCH ×2 (08:37→21:49)
[2017-01-05] MEDS ORDERED: POTASSIUM CHLORIDE (SR) 20 MEQ TAB PO STA (14:58)
[2017-01-05] MEDS ORDERED: MAGNESIUM SULFATE 2 GM/50 ML 50 ML IVPB ONE (15:30)
--- NOTE | 2017-01-05 16:17 | CONS ---
Date/Time of Note Date/Time of Note DATE: 01/05/17 TIME: 16:10 Assessment/Plan Assessment/Plan Additional Assessment/Plan Acute decompensated systolic congestive heart failure History of severe cardiomyopathy with ejection fraction 20% Acute on chronic kidney injury Aortic aneurysm with history of chronic dissection Atrial fibrillation -Patient continues to respond well to diuretic therapy with improvement in creatinine, 1 dose of metolazone today, maintain potassium above 4.0 and magnesium above 2.0. If blood pressure tolerates, will start hydralazine for afterload reduction. Consultation Date/Type/Reason Admit Date/Time Jan 03, 2017 at 03:25 Initial Consult Date 01/03/17 Type of Consultation: cv Referring Provider: MINH SCHRADER 24 HR Interval Summary Free Text/Dictation Shortness of breath continues to improve. Denies dizziness or lightheadedness, ambulating today and feeling better Exam/Review of Systems Vital Signs Vitals Vital Signs Date Time Temp Pulse Resp B/P Pulse Ox O2 Delivery O2 Flow Rate FiO2 01/05/17 15:55 98.2 73 19 116/67 94 01/04/17 08:00 Nasal Cannula 2.0 Intake and Output 01/04/17 01/04/17 01/05/17 15:00 23:00 07:00 Intake Total 250 ml 200 ml Output Total 1500 ml 800 ml Balance -1250 ml -600 ml Exam No apparent distress Constitutional: alert, frail, oriented Head: normocephalic Respiratory: other (Coarse breath sounds bilaterally, no wheezing) Cardiovascular: irregular rhythm, other (S1-S2 heard), systolic murmur Gastrointestinal: bowel sounds, non-tender, soft Extremities: edema Results Result Diagram: 01/05/17 0707 01/05/17 0707 Results 24 hrs Laboratory Tests Test 01/05/17 07:07 White Blood Count 6.6 Red Blood Count 4.16 L Hemoglobin 11.9 L Hematocrit 36.9 L Mean Corpuscular Volume 88.7 Mean Corpuscular Hemoglobin 28.6 L Mean Corpuscular Hemoglobin Concent 32.2 Red Cell Distribution Width 17.9 H Platelet Count 171 Mean Platelet Volume 11.3 H Neutrophils % 65.2 Lymphocytes % 22.2 Monocytes % 9.2 Eosinophils % 2.0 Basophils % 0.9 Nucleated Red Blood Cells % 0.0 Neutrophils # 4.3 Lymphocytes # 1.5 Monocytes # 0.6 Eosinophils # 0.1 Basophils # 0.1 Nucleated Red Blood Cells # 0.0 Sodium Level 137 Potassium Level 3.9 Chloride Level 96 L Carbon Dioxide Level 25 Anion Gap 20 H Blood Urea Nitrogen 54 H Creatinine 2.16 H Glucose Level 83 Calcium Level 8.8 Phosphorus Level 4.2 Magnesium Level 1.9 Parathyroid Hormone (Intact) Medications Medications Current Medications Ondansetron HCl (Zofran Inj) 4 mg Q6H PRN IV NAUSEA AND/OR VOMITING; Start at 03:30 Acetaminophen (Tylenol Tab) 650 mg Q6H PRN PO PAIN LEVEL 1-3 OR FEVER; Start at 03:30 Docusate Sodium (Colace) 100 mg Q12H PRN PO CONSTIPATION; Start 01/03/17 at 03: 30 Bisacodyl (Dulcolax) 5 mg DAILY PRN PO CONSTIPATION; Start 01/03/17 at 03:30 Pantoprazole (Protonix Iv) 40 mg DAILY@06 IV Last administered on 01/05/17 06: 24; Admin Dose 40 MG; Start 01/03/17 at 06:00 Amiodarone HCl (Cordarone) 200 mg DAILY PO Last administered on 01/05/17 08:36 ; Admin Dose 200 MG; Start 01/03/17 at 09:00 Carvedilol (Coreg) 3.125 mg BID PO Last administered on 01/05/17 08:36; Admin Dose 3.125 MG; Start 01/03/17 at 09:00 Apixaban 2.5 mg 2.5 mg BID PO Last administered on 01/05/17 08:37; Admin Dose 2.5 MG; Start 01/03/17 at 10:30 Magnesium Sulfate (Magnesium Sulfate 2 Gm/50 ml) 50 ml @ 25 mls/hr ONCE ONCE IVPB Last administered on 01/05/17 15:18; Admin Dose 25 MLS/HR; Start at 15:30; Stop 01/05/17 at 17:29 Rubén Pettit DO Jan 05, 2017 16:17
--- NOTE | 2017-01-05 16:38 | CONS ---
Date/Time of Note Date/Time of Note DATE: 01/05/17 TIME: 16:37 Assessment/Plan Assessment/Plan Additional Assessment/Plan 1. Acute kidney injury vs Acute kidney injury on CKD due to cardiorenal syndrome and hemodynamics 2. Acute CHF, acute on chronic, possibel systolic 3. Cardiomyopathy with EF 15%- ECHO in 2014 showed EF 15% 4. h/o aortic aneurysm/dissection 5. H/o CVA with left sided weakness 6. hypertension 7. Hyperlipidemia 8. atrial fibrillation plan: Continue lasix 40mg IV BID, d/maria del rosario metolazone yesterday to avoid overdiuresis ECHO showed EF 20% Renal Us showed bilateral renal simple cysts and C/w medical renal disease anticoagulation as per Primary and cardiology no ACEI/ARB at this time due to elevated creatinine- no previous baseline cr available, in 2014- pt Cr was fluctuating at low between 1.5 to 2.0- will monitor it in next 1-2 days and will consider ACEI/ARB after diuresis will continue to follow up on patient Consultation Date/Type/Reason Admit Date/Time Jan 03, 2017 at 03:25 Initial Consult Date 01/03/17 Type of Consultation: NEPHROLOGY Referring Provider: MINH SCHRADER 24 HR Interval Summary Free Text/Dictation made 2.3 L urine, no SOB, Bp stable, no chest pain Exam/Review of Systems Vital Signs Vitals Vital Signs Date Time Temp Pulse Resp B/P Pulse Ox O2 Delivery O2 Flow Rate FiO2 01/05/17 15:55 98.2 73 19 116/67 94 01/04/17 08:00 Nasal Cannula 2.0 Intake and Output 01/04/17 01/04/17 01/05/17 15:00 23:00 07:00 Intake Total 250 ml 200 ml Output Total 1500 ml 800 ml Balance -1250 ml -600 ml Exam Constitutional: alert, oriented Psych: no complaints Head: normocephalic Eyes: nl conjunctiva ENMT: nl external ears & nose Neck: supple Respiratory: crackles/rales, diminished breath sounds Cardiovascular: irregular rhythm, regular rate and rhythm Gastrointestinal: non-tender, soft Genitourinary - Female: other (deferred) Musculoskeletal: nl extremities to inspection, other (1+ edema ) Extremities: normal pulses 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 Skin: nl turgor Lymph: nl lymph nodes Results Result Diagram: 01/05/17 0707 01/05/17 0707 Results 24 hrs Laboratory Tests Test 01/05/17 07:07 White Blood Count 6.6 Red Blood Count 4.16 L Hemoglobin 11.9 L Hematocrit 36.9 L Mean Corpuscular Volume 88.7 Mean Corpuscular Hemoglobin 28.6 L Mean Corpuscular Hemoglobin Concent 32.2 Red Cell Distribution Width 17.9 H Platelet Count 171 Mean Platelet Volume 11.3 H Neutrophils % 65.2 Lymphocytes % 22.2 Monocytes % 9.2 Eosinophils % 2.0 Basophils % 0.9 Nucleated Red Blood Cells % 0.0 Neutrophils # 4.3 Lymphocytes # 1.5 Monocytes # 0.6 Eosinophils # 0.1 Basophils # 0.1 Nucleated Red Blood Cells # 0.0 Sodium Level 137 Potassium Level 3.9 Chloride Level 96 L Carbon Dioxide Level 25 Anion Gap 20 H Blood Urea Nitrogen 54 H Creatinine 2.16 H Glucose Level 83 Calcium Level 8.8 Phosphorus Level 4.2 Magnesium Level 1.9 Parathyroid Hormone (Intact) Medications Medications Current Medications Ondansetron HCl (Zofran Inj) 4 mg Q6H PRN IV NAUSEA AND/OR VOMITING; Start at 03:30 Acetaminophen (Tylenol Tab) 650 mg Q6H PRN PO PAIN LEVEL 1-3 OR FEVER; Start at 03:30 Docusate Sodium (Colace) 100 mg Q12H PRN PO CONSTIPATION; Start 01/03/17 at 03: 30 Bisacodyl (Dulcolax) 5 mg DAILY PRN PO CONSTIPATION; Start 01/03/17 at 03:30 Pantoprazole (Protonix Iv) 40 mg DAILY@06 IV Last administered on 01/05/17 06: 24; Admin Dose 40 MG; Start 01/03/17 at 06:00 Amiodarone HCl (Cordarone) 200 mg DAILY PO Last administered on 01/05/17 08:36 ; Admin Dose 200 MG; Start 01/03/17 at 09:00 Carvedilol (Coreg) 3.125 mg BID PO Last administered on 01/05/17 08:36; Admin Dose 3.125 MG; Start 01/03/17 at 09:00 Apixaban 2.5 mg 2.5 mg BID PO Last administered on 01/05/17 08:37; Admin Dose 2.5 MG; Start 01/03/17 at 10:30 Magnesium Sulfate (Magnesium Sulfate 2 Gm/50 ml) 50 ml @ 25 mls/hr ONCE ONCE IVPB Last administered on 01/05/17t 15:18; Admin Dose 25 MLS/HR; Start at 15:30; Stop 01/05/17 at 17:29 Metolazone (Zaroxolyn) 2.5 mg ONCE ONCE PO ; Start 01/05/17 at 17:30; Stop at 17:31 Hydralazine HCl (Apresoline) 10 mg BID PO ; Start 01/05/17 at 21:00 TONIA GREGORY MD Jan 05, 2017 16:38
[2017-01-05] MEDS ORDERED: METOLAZONE 2.5 MG TAB PO ONE (17:30)
--- NOTE | 2017-01-05 17:35 | PN ---
Date/Time of Note Date/Time of Note DATE: 01/05/17 TIME: 17:33 Assessment/Plan VTE Prophylaxis VTE Prophylaxis Intervention: LMWH Lines/Catheters IV Catheter Type (from Nrs): Saline Lock Urinary Cath still in place: Yes Reason Cath still needed: other (indicate) Assessment/Plan Chief Complaint/Hosp Course 76 yo female with h/o NICM chronic systolic CHF presenting wt acute on chronic CHF exacerbation and LINO Acute on chronic CHF exacerbation: - Continue IV lasix to euvolemia, many liters to go - BB, AILYN/dominique if renal function improved/stable LINO vs CKD III - Monitor creatinine, no clear etiology Severe pulmonary hypertension: likely 2/2 LV failure Severe tricuspid regurgitation: diurese as above Discharge when euvolemic Problems: Subjective 24 Hr Interval Summary Free Text/Dictation Continues on IV diuresis, doing well Volume status slowly improving No complaints Exam/Review of Systems Vital Signs Vitals Vital Signs Date Time Temp Pulse Resp B/P Pulse Ox O2 Delivery O2 Flow Rate FiO2 01/05/17 16:12 72 01/05/17 15:55 98.2 19 116/67 94 01/04/17 08:00 Nasal Cannula 2.0 Intake and Output 01/04/17 01/04/17 01/05/17 15:00 23:00 07:00 Intake Total 250 ml 200 ml Output Total 1500 ml 800 ml Balance -1250 ml -600 ml Exam TTE with EF 20, pulm hypertension, severe TR ++ JVD ++ peripheral edema Nonlabored respiratory status Results Result Diagram: 01/05/17 0707 01/05/17 0707 Results 24 hrs Laboratory Tests Test 01/05/17 07:07 White Blood Count 6.6 Red Blood Count 4.16 L Hemoglobin 11.9 L Hematocrit 36.9 L Mean Corpuscular Volume 88.7 Mean Corpuscular Hemoglobin 28.6 L Mean Corpuscular Hemoglobin Concent 32.2 Red Cell Distribution Width 17.9 H Platelet Count 171 Mean Platelet Volume 11.3 H Neutrophils % 65.2 Lymphocytes % 22.2 Monocytes % 9.2 Eosinophils % 2.0 Basophils % 0.9 Nucleated Red Blood Cells % 0.0 Neutrophils # 4.3 Lymphocytes # 1.5 Monocytes # 0.6 Eosinophils # 0.1 Basophils # 0.1 Nucleated Red Blood Cells # 0.0 Sodium Level 137 Potassium Level 3.9 Chloride Level 96 L Carbon Dioxide Level 25 Anion Gap 20 H Blood Urea Nitrogen 54 H Creatinine 2.16 H Glucose Level 83 Calcium Level 8.8 Phosphorus Level 4.2 Magnesium Level 1.9 Parathyroid Hormone (Intact) Medications Medications Current Medications Ondansetron HCl (Zofran Inj) 4 mg Q6H PRN IV NAUSEA AND/OR VOMITING; Start at 03:30 Acetaminophen (Tylenol Tab) 650 mg Q6H PRN PO PAIN LEVEL 1-3 OR FEVER; Start at 03:30 Docusate Sodium (Colace) 100 mg Q12H PRN PO CONSTIPATION; Start 01/03/17 at 03: 30 Bisacodyl (Dulcolax) 5 mg DAILY PRN PO CONSTIPATION; Start 01/03/17 at 03:30 Pantoprazole (Protonix Iv) 40 mg DAILY@06 IV Last administered on 01/05/17 06: 24; Admin Dose 40 MG; Start 01/03/17 at 06:00 Amiodarone HCl (Cordarone) 200 mg DAILY PO Last administered on 01/05/17 08:36 ; Admin Dose 200 MG; Start 01/03/17 at 09:00 Carvedilol (Coreg) 3.125 mg BID PO Last administered on 01/05/17 08:36; Admin Dose 3.125 MG; Start 01/03/17 at 09:00 Apixaban (Eliquis) 2.5 mg BID PO Last administered on 01/05/17 08:37; Admin Dose 2.5 MG; Start 01/03/17 at 10:30 Hydralazine HCl (Apresoline) 10 mg BID PO ; Start 01/05/17 at 21:00 SYDNIE ALONSO MD Jan 05, 2017 17:35
[2017-01-06] VITALS (12 sets, daily range): BP systolic 105–127; BP diastolic 62–79; PULSE 69–96; RESP 15–18
[2017-01-06] MEDS: LEVOTHYROXINE 100 MCG TAB PO SCH (06:25)
[2017-01-06] MEDS: FUROSEMIDE 40 MG INJ IV SCH ×2 (06:25→17:35)
[2017-01-06] MEDS: PANTOPRAZOLE 40 MG INJ IV SCH (06:26)
--- NOTE | 2017-01-06 06:40 | ERA ---
ER Documentation Chief Complaint Date/Time DATE: 01/06/17 TIME: 06:38 Chief Complaint c/o swelling lower extremities/sob x 1 week HPI This is a 76-year-old female who complains of dyspnea on exertion and orthopnea with some lower extremity swelling. She says this is occurred over the past week. Denies any chest pain shortness of breath at rest cough fever abdominal pain vomiting. The patient thinks that she has a history of heart failure but she is not sure. She says she has had swelling in her legs in the past. ROS All systems reviewed and are negative except as per history of present illness. Medications Home Meds Reported Medications Levothyroxine Sodium* (Levothyroxine Sodium*) 100 Mcg Tablet, 100 MCG PO BEFORE BREAKFAST, #30 TAB 01/02/17 Amiodarone Hcl* (Amiodarone Hcl*) 200 Mg Tablet, 200 MG PO DAILY, #30 TAB 01/02/17 Valsartan* (Diovan*) 40 Mg Tablet, 40 MG PO BID, TAB 01/02/17 Carvedilol* (Carvedilol*) 3.125 Mg Tablet, 3.125 MG PO BID, #60 TAB 01/02/17 Discontinued Reported Medications Carvedilol* (Carvedilol*) 6.25 Mg Tablet, 6.25 MG PO BID, TAB 05/09/15 Valsartan* (Diovan*) 40 Mg Tablet, 40 MG PO BID, TAB 05/09/15 Discontinued Scripts Atorvastatin* (Atorvastatin*) 40 Mg Tablet, 40 MG PO QHS, #60 TAB Prov:JACK GILMORE 05/19/15 Furosemide* (Lasix*) 20 Mg Tablet, 20 MG PO DAILY, #60 TAB Prov:JACK GILMORE 05/19/15 Allergies Allergies: Coded Allergies: losartan (Verified Allergy, Intermediate, difuse red blotchy rash, 01/02/17 ) PMhx/Soc History of Surgery: Yes (RT HIP SURGERY) Anesthesia Reaction: No 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) Hx Respiratory Disorders: No Hx Cardiac Disorders: Yes (CHF,CORONARY ANGIOPLASTY,HTN) Hx Psychiatric Problems: Yes (ANXIETY) Hx Miscellaneous Medical Probl: No Hx Alcohol Use: Yes (SOCIAL GATHERINGS) Hx Substance Use: No Hx Tobacco Use: No Smoking Status: Never smoker FmHx Family History: No coronary disease Physical Exam Vitals Vital Signs Date Time Temp Pulse Resp B/P Pulse Ox O2 Delivery O2 Flow Rate FiO2 01/03/17 03:25 82 16 114/83 100 Nasal Cannula 2.0 01/03/17 01:39 89 22 103/80 98 Nasal Cannula 2.0 01/02/17 23:30 82 18 110/93 97 01/02/17 21:45 83 21 117/93 97 01/02/17 19:45 86 26 120/95 93 01/02/17 18:37 97.6 88 20 122/69 98 Physical Exam Const: Well-developed, well-nourished Head: Atraumatic, normocephalic Eyes: Normal Conjunctiva, PERRLA, EOMI, normal sclera, no nystagmus ENT: Normal External Ears, Nose and Mouth, moist mucus membranes. Neck: Full range of motion. No meningismus, no lymphadenopathy. Resp: No increased work of breathing, diffuse scattered rhonchi no wheezing Cardio: Regular rate and rhythm, no murmurs, S1 S2 present Abd: Soft, non tender x 4, non distended. Normal bowel sounds, no guarding or rebound, no pulsitile abdominal masses or bruits Skin: No petechiae or rashes, no ecchymosis , no maculopapular rash Back: No midline or flank tenderness Ext: No cyanosis, +1-2 edema in the lower extremities, FROM x 4, normal inspection, neurovascularly intact x 4 Neur: Awake and alert, STR 5/5 x 4, sensation intact x 4, no focal findings, cerebellum intact Psych: Normal Mood and Affect Result Diagram: 01/05/17 0707 01/05/17 0707 Results 24 hrs Laboratory Tests Test 01/02/17 19:50 White Blood Count 7.510^3/ul Red Blood Count 4.2210^6/ul Hemoglobin 11.9g/dl Hematocrit 37.6% Mean Corpuscular Volume 89.1fl Mean Corpuscular Hemoglobin 28.2pg Mean Corpuscular Hemoglobin Concent 31.6g/dl Red Cell Distribution Width 18.2% Platelet Count 53627^3/UL Mean Platelet Volume 11.0fl Neutrophils % 68.7% Lymphocytes % 20.2% Monocytes % 9.4% Eosinophils % 0.9% Basophils % 0.5% Nucleated Red Blood Cells % 0.0/100WBC Neutrophils # 5.210^3/ul Lymphocytes # 1.510^3/ul Monocytes # 0.710^3/ul Eosinophils # 0.110^3/ul Basophils # 0.010^3/ul Nucleated Red Blood Cells # 0.010^3/ul Prothrombin Time 15.4Sec Prothrombin Time Ratio 1.2 INR International Normalized Ratio 1.21 Activated Partial Thromboplast Time 30.6Sec Sodium Level 138mmol/L Potassium Level 4.6mmol/L Chloride Level 101mmol/L Carbon Dioxide Level 21mmol/L Anion Gap 21 Blood Urea Nitrogen 48mg/dl Creatinine 2.24mg/dl Glucose Level 101mg/dl Calcium Level 9.0mg/dl Total Bilirubin 0.5mg/dl Direct Bilirubin 0.00mg/dl Indirect Bilirubin 0.5mg/dl Aspartate Amino Transf (AST/SGOT) 20IU/L Alanine Aminotransferase (ALT/SGPT) 38IU/L Alkaline Phosphatase 98IU/L Troponin I < 0.012ng/ml B-Type Natriuretic Peptide 81470UE/ML Total Protein 6.2g/dl Albumin 3.4g/dl Globulin 2.80g/dl Albumin/Globulin Ratio 1.21 Current Medications Medications (Trade) Dose Ordered Sig/Timothy Route PRN Reason Start Time Stop Time Status Last Admin Dose Admin Furosemide (Lasix) 40 mg ONCE STAT IV 01/02/17 19:49 01/02/17 19:51 DC 01/02/17 20:04 Procedures/MDM PROCEDURE: XR Chest. CLINICAL INDICATION: Chest pain TECHNIQUE: Portable single view of the chest COMPARISON: 05/17/2015 FINDINGS: Again seen is cardiomegaly with ectatic and tortuous aorta. Slight left base subsegmental atelectasis. Increased left base opacity may all be due to cardiomegaly or underlying airspace disease. . Possible small left effusion. Small right pleural effusion is seen slight hazy infiltrate of the right lung base which could be due to early infectious infiltrate. IMPRESSION: Cardiomegaly. Slightly increased left retrocardiac opacity may all be due to cardiomegaly although underlying airspace disease cannot be completely excluded. Lateral view could be obtained if indicated clinically. Question early right base infiltrate. Small right effusion and possible small left effusion. RPTAT: HLBE Leonarda Nieto, Physician Date Time Electronically viewed and signed by Leonarda Nieto Physician on 01/03/2017 02 :21 LE/ CC: MARCO LAZCANO DO EKG: Rate/Rhythm: Normal Sinus Rhythm,NL intervals QRS, ST, QT: NORMAL [place], QRS, QT] Impression: NORMAL EKG Patient's heart failure symptoms is concerning for acute decompensation and will require inpatient workup and monitoring. Further w/u for ischemia, arrhythmia, PE or dissection will be deferred to the inpatient team. Accepting Care Team: Current data and ongoing care discussed. Time: Time of admission Primary Provider: [XOXOXO] Consulting: [XOXOXO] Outstanding Data: none Departure Diagnosis: Primary Impression: CHF exacerbation Qualified Code: I50.9 - Acute on chronic congestive heart failure, unspecified congestive heart failure type Condition: Stable MARCO LAZCANO DO Jan 06, 2017 06:40
[2017-01-06 07:53] LABS: CALCIUM 8.8 mg/dl (8.4-10.2); CREATININE 2.1 mg/dl (0.44-1.00); POTASSIUM 4.5 mmol/L (3.5-5.1)
[2017-01-06] MEDS: APIXABAN 5 MG TABLET PO SCH ×2 (08:44→22:20)
[2017-01-06] MEDS: AMIODARONE 200 MG TAB PO SCH (08:45)
--- NOTE | 2017-01-06 12:37 | CONS ---
Date/Time of Note Date/Time of Note DATE: 01/06/17 TIME: 12:36 Assessment/Plan Assessment/Plan Additional Assessment/Plan 1. Acute kidney injury vs Acute kidney injury on CKD due to cardiorenal syndrome and hemodynamics 2. Acute CHF, acute on chronic, Systolic 3. Cardiomyopathy with EF 15%- ECHO in 2014 showed EF 15% 4. h/o aortic aneurysm/dissection 5. H/o CVA with left sided weakness 6. hypertension 7. Hyperlipidemia 8. atrial fibrillation plan: Continue lasix 40mg IV BID, metolazone 2.5 mg po x 1 dose now and then daily, yesterday she received one dose metolazone 2.5 mg ECHO showed EF 20% Renal Us showed bilateral renal simple cysts and C/w medical renal disease anticoagulation as per Primary and cardiology no ACEI/ARB at this time due to elevated creatinine- no previous baseline cr available, in 2014- pt Cr was fluctuating at low between 1.5 to 2.0- will monitor it in next 1-2 days and will consider ACEI/ARB after diuresis will continue to follow up on patient Consultation Date/Type/Reason Admit Date/Time Jan 03, 2017 at 03:25 Initial Consult Date 01/03/17 Type of Consultation: NEPHROLOGY Referring Provider: MINH SCHRADER Exam/Review of Systems Vital Signs Vitals Vital Signs Date Time Temp Pulse Resp B/P Pulse Ox O2 Delivery O2 Flow Rate FiO2 01/06/17 12:23 69 01/06/17 11:18 98.1 18 120/78 92 01/04/17 08:00 Nasal Cannula 2.0 Intake and Output 01/05/17 01/05/17 01/06/17 15:00 23:00 07:00 Intake Total 750 ml 300 ml Output Total 2200 ml 900 ml Balance -1450 ml -600 ml Exam Constitutional: alert, oriented Respiratory: crackles/rales, diminished breath sounds Cardiovascular: irregular rhythm, regular rate and rhythm Gastrointestinal: non-tender, soft Genitourinary - Female: other (deferred) Musculoskeletal: nl extremities to inspection, other (1+ edema ) Extremities: normal pulses Neurological: [employer]END[employer] II-XII intact Results Result Diagram: 01/05/17 0707 01/06/17 0607 Results 24 hrs Laboratory Tests Test 01/06/17 06:07 Sodium Level 137 Potassium Level 4.5 Chloride Level 93 L Carbon Dioxide Level 30 Anion Gap 19 H Blood Urea Nitrogen 57 H Creatinine 2.10 H Glucose Level 82 Calcium Level 8.8 Magnesium Level 2.1 Medications Medications Current Medications Ondansetron HCl (Zofran Inj) 4 mg Q6H PRN IV NAUSEA AND/OR VOMITING; Start at 03:30 Acetaminophen (Tylenol Tab) 650 mg Q6H PRN PO PAIN LEVEL 1-3 OR FEVER; Start at 03:30 Docusate Sodium (Colace) 100 mg Q12H PRN PO CONSTIPATION; Start 01/03/17 at 03: 30 Bisacodyl (Dulcolax) 5 mg DAILY PRN PO CONSTIPATION; Start 01/03/17 at 03:30 Amiodarone HCl (Cordarone) 200 mg DAILY PO Last administered on 01/06/17 08:45 ; Admin Dose 200 MG; Start 01/03/17 at 09:00 Carvedilol (Coreg) 3.125 mg BID PO Last administered on 01/06/17 08:45; Admin Dose 3.125 MG; Start 01/03/17 at 09:00 Apixaban (Eliquis) 2.5 mg BID PO Last administered on 01/06/17 08:44; Admin Dose 2.5 MG; Start 01/03/17 at 10:30 Hydralazine HCl (Apresoline) 10 mg BID PO Last administered on 01/06/17 08:45 ; Admin Dose 10 MG; Start 01/05/17 at 21:00 TONIA GREGORY MD Jan 06, 2017 12:37
[2017-01-06] MEDS ORDERED: METOLAZONE 2.5 MG TAB PO ONE (13:00)
--- NOTE | 2017-01-06 14:10 | CONS ---
Date/Time of Note Date/Time of Note DATE: 01/06/17 TIME: 14:08 Assessment/Plan Assessment/Plan Additional Assessment/Plan Acute decompensated systolic congestive heart failure History of severe cardiomyopathy with ejection fraction 20% Acute on chronic kidney injury Aortic aneurysm with history of chronic dissection Atrial fibrillation -Shortness of breath and lower extremity edema continues to improve. Patient responded well to metolazone. Patient has been started on daily metolazone. Diuretics as per our nephrology colleagues. If renal function continues to improve, consider changing hydralazine to AILYN inhibitor if okay by our nephrology colleagues. Consultation Date/Type/Reason Admit Date/Time Jan 03, 2017 at 03:25 Initial Consult Date 01/03/17 Type of Consultation: cv Referring Provider: MINH SCHRADER 24 HR Interval Summary Free Text/Dictation Shortness of breath continues to improve, lower extremity edema is better. Exam/Review of Systems Vital Signs Vitals Vital Signs Date Time Temp Pulse Resp B/P Pulse Ox O2 Delivery O2 Flow Rate FiO2 01/06/17 12:23 69 01/06/17 11:18 98.1 18 120/78 92 01/04/17 08:00 Nasal Cannula 2.0 Intake and Output 01/05/17 01/05/17 01/06/17 14:59 22:59 06:59 Intake Total 750 ml 300 ml Output Total 2200 ml 900 ml Balance -1450 ml -600 ml Exam No apparent distress, no dyspnea with speaking Constitutional: alert, frail, oriented Head: normocephalic Respiratory: other (Coarse breath sounds bilaterally, no wheezing) Cardiovascular: other (S1-S2 heard), regular rate and rhythm Gastrointestinal: bowel sounds, non-tender, soft Extremities: edema Results Result Diagram: 01/05/17 0707 01/06/17 0607 Results 24 hrs Laboratory Tests Test 01/06/17 06:07 Sodium Level 137 Potassium Level 4.5 Chloride Level 93 L Carbon Dioxide Level 30 Anion Gap 19 H Blood Urea Nitrogen 57 H Creatinine 2.10 H Glucose Level 82 Calcium Level 8.8 Magnesium Level 2.1 Medications Medications Current Medications Ondansetron HCl (Zofran Inj) 4 mg Q6H PRN IV NAUSEA AND/OR VOMITING; Start at 03:30 Acetaminophen (Tylenol Tab) 650 mg Q6H PRN PO PAIN LEVEL 1-3 OR FEVER; Start at 03:30 Docusate Sodium (Colace) 100 mg Q12H PRN PO CONSTIPATION; Start 01/03/17 at 03: 30 Bisacodyl (Dulcolax) 5 mg DAILY PRN PO CONSTIPATION; Start 01/03/17 at 03:30 Amiodarone HCl (Cordarone) 200 mg DAILY PO Last administered on 01/06/17 08:45 ; Admin Dose 200 MG; Start 01/03/17 at 09:00 Carvedilol (Coreg) 3.125 mg BID PO Last administered on 01/06/17 08:45; Admin Dose 3.125 MG; Start 01/03/17 at 09:00 Apixaban (Eliquis) 2.5 mg BID PO Last administered on 01/06/17 08:44; Admin Dose 2.5 MG; Start 01/03/17 at 10:30 Hydralazine HCl (Apresoline) 10 mg BID PO Last administered on 01/06/17 08:45 ; Admin Dose 10 MG; Start 01/05/17 at 21:00 Metolazone (Zaroxolyn) 2.5 mg DAILY@06 PO ; Start 01/07/17 at 06:00 Rubén Pettit DO Jan 06, 2017 14:09
--- NOTE | 2017-01-06 16:11 | PN ---
Date/Time of Note Date/Time of Note DATE: 01/06/17 TIME: 16:11 Assessment/Plan VTE Prophylaxis VTE Prophylaxis Intervention: heparin Lines/Catheters IV Catheter Type (from Nrsg): Saline Lock Urinary Cath still in place: Yes Reason Cath still needed: urinary retention Assessment/Plan Chief Complaint/Hosp Course 76 yo female with h/o NICM chronic systolic CHF presenting wt acute on chronic CHF exacerbation and LINO Acute on chronic CHF exacerbation: - Continue IV lasix to euvolemia, many liters to go - BB, AILYN/dominique if renal function improved/stable LINO vs CKD III - Monitor creatinine, no clear etiology Severe pulmonary hypertension: likely 2/2 LV failure Severe tricuspid regurgitation: diurese as above Discharge when euvolemic Problems: Subjective 24 Hr Interval Summary Free Text/Dictation Comfortalbe Still requiring diuresis Exam/Review of Systems Vital Signs Vitals Vital Signs Date Time Temp Pulse Resp B/P Pulse Ox O2 Delivery O2 Flow Rate FiO2 01/06/17 15:34 97.6 67 17 107/62 97 01/04/17 08:00 Nasal Cannula 2.0 Intake and Output 01/05/17 01/05/17 01/06/17 15:00 23:00 07:00 Intake Total 750 ml 300 ml Output Total 2200 ml 900 ml Balance -1450 ml -600 ml Results Result Diagram: 01/05/17 0707 01/06/17 0607 Results 24 hrs Laboratory Tests Test 01/06/17 06:07 Sodium Level 137 Potassium Level 4.5 Chloride Level 93 L Carbon Dioxide Level 30 Anion Gap 19 H Blood Urea Nitrogen 57 H Creatinine 2.10 H Glucose Level 82 Calcium Level 8.8 Magnesium Level 2.1 Medications Medications Current Medications Ondansetron HCl (Zofran Inj) 4 mg Q6H PRN IV NAUSEA AND/OR VOMITING; Start at 03:30 Acetaminophen (Tylenol Tab) 650 mg Q6H PRN PO PAIN LEVEL 1-3 OR FEVER; Start at 03:30 Docusate Sodium (Colace) 100 mg Q12H PRN PO CONSTIPATION; Start 01/03/17 at 03: 30 Bisacodyl (Dulcolax) 5 mg DAILY PRN PO CONSTIPATION; Start 01/03/17 at 03:30 Amiodarone HCl (Cordarone) 200 mg DAILY PO Last administered on 01/06/17 08:45 ; Admin Dose 200 MG; Start 01/03/17 at 09:00 Carvedilol (Coreg) 3.125 mg BID PO Last administered on 01/06/17 08:45; Admin Dose 3.125 MG; Start 01/03/17 at 09:00 Apixaban (Eliquis) 2.5 mg BID PO Last administered on 01/06/17 08:44; Admin Dose 2.5 MG; Start 01/03/17 at 10:30 Hydralazine HCl (Apresoline) 10 mg BID PO Last administered on 01/06/17 08:45 ; Admin Dose 10 MG; Start 01/05/17 at 21:00 Metolazone (Zaroxolyn) 2.5 mg DAILY@06 PO ; Start 01/07/17 at 06:00 SYDNIE ALONSO MD Jan 06, 2017 16:11
[2017-01-07] VITALS (8 sets, daily range): BP systolic 98–116; BP diastolic 60–79; PULSE 65–77; RESP 15–19
[2017-01-07] MEDS: FUROSEMIDE 40 MG INJ IV SCH (06:00)
[2017-01-07] MEDS ORDERED: METOLAZONE 2.5 MG TAB PO SCH (06:00)
[2017-01-07] MEDS: LEVOTHYROXINE 100 MCG TAB PO SCH (06:28)
[2017-01-07] MEDS: AMIODARONE 200 MG TAB PO SCH (08:53)
[2017-01-07] MEDS: APIXABAN 5 MG TABLET PO SCH (08:53)
--- NOTE | 2017-01-07 09:55 | PN ---
Date/Time of Note Date/Time of Note DATE: 01/07/17 TIME: 09:51 Assessment/Plan VTE Prophylaxis VTE Prophylaxis Intervention: SCD's Lines/Catheters IV Catheter Type (from Nrsg): Saline Lock Urinary Cath still in place: Yes Reason Cath still needed: urinary retention Assessment/Plan Assessment/Plan Acute on chronic kidney disease Mildly elevated troponin Left ventricular hypertrophy Preserved ejection fraction -Patient with incidental mildly elevated troponin, likely secondary to decreased renal clearance and patient remains asymptomatic. Echocardiogram with low ejection fraction and evidence of LVH. Would continue aspirin therapy and statin therapy if no complication. Beta-blockers heart rate and blood pressure permits. -may change to po lasix when ok with renal service -no acei due to renal insuff -swp and told her that when renal service feels stable for d/c, only then would we reccomed to be discharged Subjective 24 Hr Interval Summary Free Text/Dictation The patient with no change Exam/Review of Systems Vital Signs Vitals Vital Signs Date Time Temp Pulse Resp B/P Pulse Ox O2 Delivery O2 Flow Rate FiO2 01/07/17 08:18 75 01/07/17 07:43 98.0 19 114/79 92 01/04/17 08:00 Nasal Cannula 2.0 Intake and Output 01/06/17 01/06/17 01/07/17 15:00 23:00 07:00 Intake Total 300 ml Balance 300 ml Results Result Diagram: 01/05/17 0707 01/06/17 0607 Medications Medications Current Medications Ondansetron HCl (Zofran Inj) 4 mg Q6H PRN IV NAUSEA AND/OR VOMITING; Start at 03:30 Acetaminophen (Tylenol Tab) 650 mg Q6H PRN PO PAIN LEVEL 1-3 OR FEVER; Start at 03:30 Docusate Sodium (Colace) 100 mg Q12H PRN PO CONSTIPATION; Start 01/03/17 at 03: 30 Bisacodyl (Dulcolax) 5 mg DAILY PRN PO CONSTIPATION; Start 01/03/17 at 03:30 Amiodarone HCl (Cordarone) 200 mg DAILY PO Last administered on 01/07/17 08:53 ; Admin Dose 200 MG; Start 01/03/17 at 09:00 Carvedilol (Coreg) 3.125 mg BID PO Last administered on 01/07/17 08:53; Admin Dose 3.125 MG; Start 01/03/17 at 09:00 Apixaban (Eliquis) 2.5 mg BID PO Last administered on 01/07/17 08:53; Admin Dose 2.5 MG; Start 01/03/17 at 10:30 Hydralazine HCl (Apresoline) 10 mg BID PO Last administered on 01/07/17 08:52 ; Admin Dose 10 MG; Start 01/05/17 at 21:00 Metolazone (Zaroxolyn) 2.5 mg DAILY@06 PO Last administered on 01/07/17 06:28 ; Admin Dose 2.5 MG; Start 01/07/17 at 06:00 JESSIE FLORES MD Jan 07, 2017 09:55
[2017-01-07 11:53] LABS: CALCIUM 8.9 mg/dl (8.4-10.2); CREATININE 2.14 mg/dl (0.44-1.00); MAGNESIUM 1.8 mg/dl (1.7-2.5); POTASSIUM 3.5 mmol/L (3.5-5.1)
[2017-01-07] MEDS ORDERED: POTASSIUM CHLORIDE (SR) 20 MEQ TAB PO STA (12:13)
--- NOTE | 2017-01-07 14:04 | CONS ---
Date/Time of Note Date/Time of Note DATE: 01/07/17 TIME: 14:02 Assessment/Plan Assessment/Plan Additional Assessment/Plan 1. Acute kidney injury vs Acute kidney injury on CKD due to cardiorenal syndrome and hemodynamics 2. Acute CHF, acute on chronic, Systolic 3. Cardiomyopathy with EF 15%- ECHO in 2014 showed EF 15% 4. h/o aortic aneurysm/dissection 5. H/o CVA with left sided weakness 6. hypertension 7. Hyperlipidemia 8. atrial fibrillation plan: Cr 2.14, bicarbonate trending up, Change lasix to PO 20mg BID, change metolazone 2.5mg MWF ECHO showed EF 20% Renal Us showed bilateral renal simple cysts and C/w medical renal disease anticoagulation as per Primary and cardiology no ACEI/ARB at this time due to elevated creatinine- no previous baseline cr available, in 2014- pt Cr was fluctuating at low between 1.5 to 2.0- will monitor it in next 1-2 days and will consider ACEI/ARB after diuresis will continue to follow up on patient Consultation Date/Type/Reason Admit Date/Time Jan 03, 2017 at 03:25 Initial Consult Date 01/03/17 Type of Consultation: NEPHROLOGY Reason for Consultation Cr stable, HCO3 trending up, worried about overidiuresis Referring Provider: MINH SCHRADER Exam/Review of Systems Vital Signs Vitals Vital Signs Date Time Temp Pulse Resp B/P Pulse Ox O2 Delivery O2 Flow Rate FiO2 01/07/17 12:15 65 01/07/17 11:36 98.1 19 105/60 94 01/04/17 08:00 Nasal Cannula 2.0 Intake and Output 01/06/17 01/06/17 01/07/17 15:00 23:00 07:00 Intake Total 300 ml Balance 300 ml Results Result Diagram: 01/05/17 0707 01/07/17 1114 Results 24 hrs Laboratory Tests Test 01/07/17 11:14 Sodium Level 136 Potassium Level 3.5 Chloride Level 90 L Carbon Dioxide Level 33 H Anion Gap 17 H Blood Urea Nitrogen 62 H Creatinine 2.14 H Glucose Level 155 Calcium Level 8.9 Magnesium Level 1.8 Medications Medications Current Medications Ondansetron HCl (Zofran Inj) 4 mg Q6H PRN IV NAUSEA AND/OR VOMITING; Start at 03:30 Acetaminophen (Tylenol Tab) 650 mg Q6H PRN PO PAIN LEVEL 1-3 OR FEVER; Start at 03:30 Docusate Sodium (Colace) 100 mg Q12H PRN PO CONSTIPATION; Start 01/03/17 at 03: 30 Bisacodyl (Dulcolax) 5 mg DAILY PRN PO CONSTIPATION; Start 01/03/17 at 03:30 Amiodarone HCl (Cordarone) 200 mg DAILY PO Last administered on 01/07/17 08:53 ; Admin Dose 200 MG; Start 01/03/17 at 09:00 Carvedilol (Coreg) 3.125 mg BID PO Last administered on 01/07/17 08:53; Admin Dose 3.125 MG; Start 01/03/17 at 09:00 Apixaban (Eliquis) 2.5 mg BID PO Last administered on 01/07/17 08:53; Admin Dose 2.5 MG; Start 01/03/17 at 10:30 Hydralazine HCl (Apresoline) 10 mg BID PO Last administered on 01/07/17 08:52 ; Admin Dose 10 MG; Start 01/05/17 at 21:00 Metolazone (Zaroxolyn) 2.5 mg DAILY@06 PO Last administered on 01/07/17 06:28 ; Admin Dose 2.5 MG; Start 01/07/17 at 06:00 TONIA GREGORY MD Jan 07, 2017 14:04
--- NOTE | 2017-01-07 14:31 | PDOCDIS ---
Discharge Instructions DIAGNOSIS Discharge Diagnosis Acute systolic congestive heart failure exacerbation, chronic kidney disease CONDITION Patient Condition: Good HOME CARE INSTRUCTIONS: Diet Instructions: Reduced SodiumSpecial Diet: cardiac ACTIVITY: Activity Restrictions: No Restrictions FOLLOW UP/APPOINTMENTS Follow-up Plan Make an appointment with your ribber in next 1-[address] Elio Moya from nephrology in next 1 week. It is very important for you to have your blood work checked in the next week as the lasix medicine you have been prescribed requires close monitoring of your electrolytes It is important for you to weigh yourself daily and monitor your body for fluid retention. These are signs that you are developing congestive heart failure and you should see your doctor SYDNIE ALONSO MD Jan 07, 2017 14:31
[2017-01-07] MEDS ORDERED: APIX5TAB PO (14:37)
[2017-01-07] MEDS ORDERED: LAS20 PO (14:37)
[2017-01-07] MEDS ORDERED: SYN1 PO (14:37)
--- NOTE | 2017-01-07 14:41 | DS ---
Date/Time of Note Date/Time of Note DATE: 01/07/17 TIME: 14:39 Discharge Summary Admission/Discharge Info Admit Date/Time Jan 03, 2017 at 03:25 Discharge Date/Time Discharge Diagnosis Acute systolic congestive heart failure exacerbation, chronic kidney disease Patient Condition: Good Hx of Present Illness Chief complaint: Shortness of breath 1 week This is a 76-year-old female with a history of CHF as well as aortic dissection who presents to the ED with shortness of breath 1 week. Patient states she denies any chest pain. She has noticed that she has been getting more swollen in her lower extremities as well as her abdomen. She reports an approximate 20 pound weight gain over the last week or so in fluid. Allergies: Losartan, shellfish Medications: See AUG Hospital Course 76 yo female with h/o NICM chronic systolic CHF presenting wt acute on chronic CHF exacerbation and LINO The patient was found to be in acute decompensated systolic heart failure. TTE confirmed reduced EF to 20%. She received IV loop diuretics with good effect. Her creatinine remained elevated at 2.0. She was continued on amiodarone for atrial fibrillation as well as Eliquis for anticoagulation. She was given Coreg 3.25 for CHF. An AILYN-I/spironolactone were deferred given her renal impairment. She was discharged on lasix 20 PO BID with instruction to follow up in the next week for blood work. 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 Home Meds Active Scripts Levothyroxine Sodium* (Synthroid*) 100 Mcg Tablet, 100 MCG PO BEFORE BREAKFAST, #30 TAB 1 Refill Prov:SYDNIE ALONSO MD 01/07/17 Furosemide (Lasix) 20 Mg Tab, 20 MG PO BID DIURETICS for 30 Days, #60 TAB Prov:SYDNIE ALONSO MD 01/07/17 Apixaban* (Eliquis*) 5 Mg Tablet, 2.5 MG PO BID for 30 Days, #60 TAB 1 Refill Prov:SYDNIE ALONSO MD 01/07/17 Reported Medications Levothyroxine Sodium* (Levothyroxine Sodium*) 100 Mcg Tablet, 100 MCG PO BEFORE BREAKFAST, #30 TAB 01/02/17 Amiodarone Hcl* (Amiodarone Hcl*) 200 Mg Tablet, 200 MG PO DAILY, #30 TAB 01/02/17 Valsartan* (Diovan*) 40 Mg Tablet, 40 MG PO BID, TAB 01/02/17 Carvedilol* (Carvedilol*) 3.125 Mg Tablet, 3.125 MG PO BID, #60 TAB 01/02/17 Discontinued Reported Medications Carvedilol* (Carvedilol*) 6.25 Mg Tablet, 6.25 MG PO BID, TAB 05/09/15 Valsartan* (Diovan*) 40 Mg Tablet, 40 MG PO BID, TAB 05/09/15 Discontinued Scripts Atorvastatin* (Atorvastatin*) 40 Mg Tablet, 40 MG PO QHS, #60 TAB Prov:JACK GILMORE 05/19/15 Furosemide* (Lasix*) 20 Mg Tablet, 20 MG PO DAILY, #60 TAB Prov:JACK GILMORE 05/19/15 Primary Care Provider Not On Staff Doctor Time spent on discharge: > 30 minutes Pending Labs Laboratory Tests Test 01/07/17 11:14 Sodium Level 136mmol/L (135-144) Potassium Level 3.5mmol/L (3.5-5.1) Chloride Level 90mmol/L (97-110) Carbon Dioxide Level 33mmol/L (21-31) Anion Gap 17 (8-16) Blood Urea Nitrogen 62mg/dl (7-20) Creatinine 2.14mg/dl (0.44-1.00) Glucose Level 155mg/dl (70-220) Calcium Level 8.9mg/dl (8.4-10.2) Magnesium Level 1.8mg/dl (1.7-2.5) SYDNIE ALONSO MD Jan 07, 2017 14:41
[2017-01-07] MEDS ORDERED: FUROSEMIDE 20 MG TAB PO SCH (18:00)
[2017-01-09] MEDS ORDERED: METOLAZONE 2.5 MG TAB PO SCH (06:00)
== END 2017-01-07 17:25 | disposition home or self-care (01) | DRG 291 ==
LOC: E/R 18:20 → TEL 01-03 03:25
PROVIDERS: ADMIT Family Medicine; ATTEND Family Medicine
DX: I13.0 Hypertensive heart and chronic kidney disease with heart failure and stage 1 through stage 4 chronic kidney disease, or unspecified chronic kidney disease (principal); I50.23 Acute on chronic systolic (congestive) heart failure; I71.01 Dissection of thoracic aorta; N17.9 Acute kidney failure, unspecified; I69.959 Hemiplegia and hemiparesis following unspecified cerebrovascular disease affecting unspecified side; I27.2 Other secondary pulmonary hypertension; I07.1 Rheumatic tricuspid insufficiency; N18.3 Chronic kidney disease, stage 3 (moderate); I42.9 Cardiomyopathy, unspecified; E78.5 Hyperlipidemia, unspecified; I48.91 Unspecified atrial fibrillation; I25.10 Atherosclerotic heart disease of native coronary artery without angina pectoris; Z95.5 Presence of coronary angioplasty implant and graft
CPT/HCPCS: 71010; 71020; 76775; 80048; 80053; 80061; 81001; 81003; 82306; 82550; 82553; 82570; 83036; 83735; 83880; 83930; 83935; 83970; 84100; 84300; 84443; 84484; 84560; 85025; 85610; 85730; 89190; 93005; 93306; 97162; C9113; J1644; J1940; J2405; J3475

== ENCOUNTER 2017-02-13 13:58 | Emergency (ER) | payer MEDICARE ==
[~2017-02-13] VITALS: Wt 63.5 kg
[~2017-02-13 13:58] MED LIST changes: +AMIO200T2 PO; +APIX5TAB PO; -ATOR40TA68 PO; +CARV3.1260 PO; -CARV6.2579 PO; -FURO-110 PO; +LAS20 PO; +LEVO100T87 PO; +SYN1 PO; -VALS40TA2 PO
[2017-02-13] MEDS ORDERED: APIX5TAB PO (14:35)
--- NOTE | 2017-02-13 14:54 | RADRPT ---
PROCEDURE: CT brain without contrast CLINICAL INDICATION: Fall, head injury, on Coumadin TECHNIQUE: CT of the brain without contrast performed on a multidetector CT scanner, with multiplan ar reformats. One or more of the following dose reduction techniques were used: Automated exposure control, adjustment in mA and / or kV according to patient size, use of iterative reconstructive emir hnique. CTDIvol = 45 mGy; DLP = 630 mGy-cm. COMPARISON: None available FINDINGS: No acute intracranial hemorrhage is identified. No extra-axial fluid collection is seen. There is no mass effect. No midline shift is identified. The ventricles and sulci are mild - moderately enlarged compatible with generalized volume loss. There are moderate to severe areas of hypodensity in the periventricular - deep white matter which a re nonspecific but suggestive of chronic small vessel ischemic changes. Emerson-white differentiation is preserved. Atherosclerotic calcifications of the intracranial internal carotid arteries are noted. There is right parietal - occipital scalp swelling with hematoma. No underlying fracture is identif ied, and skull base appear intact. Mastoids and imaged paranasal sinuses are grossly clear. IMPRESSION: 1. Right parietal - occipital scalp swelling/hematoma, without underlying fracture, or acute intrac ranial pathology identified. 2. Mild - moderate volume loss, with moderate to severe chronic small vessel ischemic changes. RPTAT: EE .Peter Dykes MD, Date Time Electronically viewed and signed by .Peter Dykes MD, on 02/13/2017 14:54 .O/
--- NOTE | 2017-02-13 15:02 | RADRPT ---
PROCEDURE: CT cervical spine without contrast. CLINICAL INDICATION: Fall, neck pain TECHNIQUE: CT of the cervical spine without contrast was performed on a multidetector CT scanner, w ith multiplanar reformats. One or more of the following dose reduction techniques were used: Automa alex exposure control, adjustment in mA and / or kV according to patient size, use of iterative recon structive technique. CTDIvol = 22 mGy and DLP = 397 mGy-cm. COMPARISON: None available. FINDINGS: No fracture or dislocation is identified. There is reversal of the lordosis of the upper cervical s pine. There is mild grade 1 anterolisthesis at C3-4. There is generalized osteopenia. Vertebral b odies are maintained in height. Atlantoaxial joint degenerative changes, and multilevel anterior o steophytes are seen with disk space narrowing, mild - moderate at C3-4, C4-5 and C6-7. C2-3: There is a mild posterior disk osteophyte and facet arthropathy. There is no central canal st enosis or foraminal narrowing. C3-4: There is a posterior disk/osteophyte and facet arthropathy. There is no central canal stenosi s or foraminal narrowing. C4-5: No disc bulge or herniation is identified. There are uncovertebral osteophytes and facet arth ropathy with moderate - severe left foraminal narrowing. C5-6: There is a posterior disk/osteophyte with mild central canal stenosis identified. There are u ncovertebral osteophytes and facet arthropathy with mild right, moderate left foraminal narrowing. C6-7: There is a posterior disk/osteophyte without central canal stenosis. There are uncovertebra l osteophytes and facet arthropathy without foraminal narrowing identified. C7-T1: No disk bulge or herniation is seen. There is facet arthropathy. There is no central canal stenosis or foraminal narrowing. IMPRESSION: 1. No fracture/dislocation identified. 2. Cervical spondylosis/degenerative enthesopathy, with reversal of the cervical lordosis and grade 1 anterolisthesis at C3-4. 3. Mild central canal stenosis at C4-5 and C5-6, with foraminal narrowing at these levels detailed above. 4. Osteopenia. RPTAT: EE .Peter Dykes MD, MD Date Time Electronically viewed and signed by .Peter Dykes MD, on 02/13/2017 15:01 .O/
[2017-02-13] MEDS ORDERED: LIDOCAINE 1%/EPI 30 ML INJ INJ STA (15:53)
[2017-02-13] MEDS ORDERED: SOD CHLORIDE 0.9% 1,000 ML IV STA (16:47)
[2017-02-13 17:36] LABS: BASOPHILS % 0.7 % (0.0-2.0); EOSINOPHILS % 0.5 % (0.0-7.0); HEMATOCRIT 26.7 % (37.0-47.0); HEMOGLOBIN 8.5 g/dl (12.0-16.0); LYMPHOCYTES # 1.7 10^3/ul (0.8-2.9); LYMPHOCYTES % 28.1 % (15.0-51.0); MEAN CORPUSCULAR HEMOGLOBIN 27.8 pg (29.0-33.0); MEAN CORPUSCULAR HGB CONC 31.8 g/dl (32.0-37.0); MEAN CORPUSCULAR VOLUME 87.3 fl (82.0-101.0); MEAN PLATELET VOLUME 12.3 fl (7.4-10.4); MONOCYTE # 0.5 10^3/ul (0.3-0.9); MONOCYTES % 9.2 % (0.0-11.0); NEUTROPHILS % 61.2 % (39.0-77.0); PLATELET COUNT 154 10^3/UL (140-415); RED BLOOD COUNT 3.06 10^6/ul (4.20-5.40); RED CELL DISTRIBUTION WIDTH 20.8 % (11.5-14.5); WHITE BLOOD COUNT 5.9 10^3/ul (4.8-10.8)
[2017-02-13 17:51] LABS: INR 2.85; PROTIME 30.3 Sec (12.2-14.2); PT RATIO 2.4
[2017-02-13 17:52] LABS: PARTIAL THROMBOPLASTIN TIME 40.6 Sec (25.0-35.0)
[2017-02-13 17:58] LABS: CALCIUM 8.7 mg/dl (8.4-10.2); CREATININE 2.93 mg/dl (0.44-1.00); POTASSIUM 4.5 mmol/L (3.5-5.1)
--- NOTE | 2017-02-13 18:32 | ERD ---
ER Documentation Chief Complaint Date/Time DATE: 02/13/17 TIME: 18:26 Chief Complaint MECHANICAL TRIP AND FALL. 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 This patient was at home and she slipped and fell in the bathroom. She did hit her head on the ground however she denies any loss of consciousness. This patient was brought to the emergency room because she states her scalp has not stopped bleeding. She does state that she is on Eliquis. ROS All systems reviewed and are negative except as per history of present illness. Medications Home Meds Active Scripts Levothyroxine Sodium* (Synthroid*) 100 Mcg Tablet, 100 MCG PO BEFORE BREAKFAST, #30 TAB 1 Refill Prov:SYDNIE ALONSO MD 01/07/17 Furosemide (Lasix) 20 Mg Tab, 20 MG PO BID DIURETICS for 30 Days, #60 TAB Prov:SYDNIE ALONSO MD 01/07/17 Reported Medications Apixaban* (Eliquis*) 5 Mg Tablet, 5 MG PO BID, TAB 02/13/17 Levothyroxine Sodium* (Levothyroxine Sodium*) 100 Mcg Tablet, 100 MCG PO BEFORE BREAKFAST, #30 TAB 01/02/17 Amiodarone Hcl* (Amiodarone Hcl*) 200 Mg Tablet, 200 MG PO DAILY, #30 TAB 01/02/17 Carvedilol* (Carvedilol*) 3.125 Mg Tablet, 3.125 MG PO BID, #60 TAB 01/02/17 Discontinued Scripts Apixaban* (Eliquis*) 5 Mg Tablet, 2.5 MG PO BID for 30 Days, #60 TAB 1 Refill Prov:SYDNIE ALONSO MD 01/07/17 Allergies Allergies: Coded Allergies: losartan (Verified Allergy, Intermediate, difuse red blotchy rash, 02/13/17) PMhx/Soc History of Surgery: Yes (RT HIP SURGERY) Anesthesia Reaction: No 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) Hx Respiratory Disorders: No Hx Cardiac Disorders: Yes (CHF,CORONARY ANGIOPLASTY,HTN) Hx Psychiatric Problems: Yes (ANXIETY) Hx Miscellaneous Medical Probl: Yes (HIP SURGERY, GOUT PER PATIENT) Hx Alcohol Use: Yes (SOCIAL GATHERINGS) Hx Substance Use: No Hx Tobacco Use: No Smoking Status: Never smoker Physical Exam Vitals Vital Signs Date Time Temp Pulse Resp B/P Pulse Ox O2 Delivery O2 Flow Rate FiO2 02/13/17 17:32 95 20 98 02/13/17 15:30 83 20 98 02/13/17 14:06 97.7 92 20 113/94 98 Physical Exam INITIAL VITAL SIGNS: Reviewed by me GENERAL: The patient is frail-appearing elderly female, dry blood on face, neck , HEENT: Patient with pulsatile active bleeding noted on the right parietal portion of the scalp with 4 cm laceration in overriding scalp hematoma, pupils equal, round, and reactive to light. EOMI. There is no scleral icterus. NECK: C-spine is soft and supple, there is no meningismus. There is no cervical lymphadenopathy. LUNGS: Clear to auscultation bilaterally. There are no rales, wheezes or rhonchi. HEART: Regular rate and rhythm, no murmurs, clicks, rubs or gallops. ABDOMEN: Soft, non-tender, non-distended. There are bowel sounds in all four quadrants. No rebound or guarding. EXTREMITIES: There is no peripheral cyanosis or edema. No focal swelling or erythema. NEUROLOGICAL: The patient moves all four extremities with 5/5 strength. Cranial nerves II - XII are intact. Normal gait. Alert and oriented SKIN: There is no apparent rash or petechiae. HEME/LYMPHATIC: There is no evidence of excessive bruising or lymphedema. PSYCHIATRIC: The patient does not appear anxious or depressed. Result Diagram: 02/13/17 1710 02/13/17 1710 Results 24 hrs Laboratory Tests Test 02/13/17 17:10 White Blood Count 5.910^3/ul Red Blood Count 3.0610^6/ul Hemoglobin 8.5g/dl Hematocrit 26.7% Mean Corpuscular Volume 87.3fl Mean Corpuscular Hemoglobin 27.8pg Mean Corpuscular Hemoglobin Concent 31.8g/dl Red Cell Distribution Width 20.8% Platelet Count 70847^3/UL Mean Platelet Volume 12.3fl Neutrophils % 61.2% Lymphocytes % 28.1% Monocytes % 9.2% Eosinophils % 0.5% Basophils % 0.7% Nucleated Red Blood Cells % 0.0/100WBC Neutrophils # (Manual) 3.610^3/ul Lymphocytes # 1.710^3/ul Monocytes # 0.510^3/ul Eosinophils # 0.010^3/ul Basophils # 0.010^3/ul Nucleated Red Blood Cells # 0.010^3/ul Prothrombin Time 30.3Sec Prothrombin Time Ratio 2.4 INR International Normalized Ratio 2.85 Activated Partial Thromboplast Time 40.6Sec Sodium Level 132mmol/L Potassium Level 4.5mmol/L Chloride Level 102mmol/L Carbon Dioxide Level 20mmol/L Anion Gap 15 Blood Urea Nitrogen 72mg/dl Creatinine 2.93mg/dl Glucose Level 107mg/dl Calcium Level 8.7mg/dl Current Medications Medications (Trade) Dose Ordered Sig/Timothy Route PRN Reason Start Time Stop Time Status Last Admin Dose Admin Lidocaine/ Epinephrine 30 ml 30 ml ONCE STAT INJ 02/13/17 15:53 02/13/17 15:54 DC Sodium Chloride (NS) 1,000 ml @ 1,000 mls/hr Q1H STAT IV 02/13/17 16:47 02/13/17 17:46 DC 02/13/17 17:36 Procedures/MDM CT head without:1. Right parietal - occipital scalp swelling/hematoma, without underlying fracture, or acute intracranial pathology identified. 2. Mild - moderate volume loss, with moderate to severe chronic small vessel ischemic changes. CT cervical spine without: 1. No fracture/dislocation identified. 2. Cervical spondylosis/degenerative enthesopathy, with reversal of the cervical lordosis and grade 1 anterolisthesis at C3-4. 3. Mild central canal stenosis at C4-5 and C5-6, with foraminal narrowing at these levels detailed above. 4. Osteopenia. Laceration Repair by me: Anesthesia: 1% lidocaine locally Location: Right parietal scalp Tendon/Joint/Nerves: No injury Foreign body: None detected after copious irrigation and exploration Technique: Simple Interrupted Sutures, and figure- of-eight Complexity: No subcutaneous sutures/mucosal repair/ edge excision Post Closure Length: 4 cm Patient's bleeding was easily controlled in the department and there is no indication of anemia. No evidence of compartment syndrome, neurologic injury, vascular injury, open joint, tendon laceration, or foreign body. Patient is appropriate for outpatient follow up. 48 hour wound check. Scar minimization instructions given. This 76-year-old female presents to the emergency room for evaluation of scalp laceration. When I evaluated this patient she had a pulsatile bleeding from the scalp. She did fall backwards in her bathroom which originally causes injury. She is taking Eliquis 5 mg daily for atrial fibrillation. This patient underwent simple interrupted sutures of the laceration, however she still continued to bleed. I did put 2 [id number] stitches in her scalp and she still had minor drainage of blood. At that point this patient did have Surgicel placed over the sutures which did stop the bleeding. The patient was placed in a pressure gauze. Lab work was obtained which shows a hemoglobin of 8.5. The patient was given 1 L fluids, she is not hypotensive and she is hemodynamically stable. She was advised to return to the emergency room in 48 hours for wound reevaluation or return to the emergency room at any point earlier than that if she would have any bleeding. Departure Diagnosis: Primary Impression: Laceration of occipital scalp Additional Impression: Closed head injury Condition: Stable DIONI MUELLER DO Feb 13, 2017 18:32
[2017-02-13 18:43] VITALS: BP 108/78; PULSE 89; RESP 16
== END 2017-02-13 19:22 | disposition home or self-care (01) ==
LOC: E/R 13:58
DX: S01.01XA Laceration without foreign body of scalp, initial encounter (principal); S09.90XA Unspecified injury of head, initial encounter; I50.9 Heart failure, unspecified; I10 Essential (primary) hypertension; W01.198A Fall on same level from slipping, tripping and stumbling with subsequent striking against other object, initial encounter; Y92.002 Bathroom of unspecified non-institutional (private) residence as the place of occurrence of the external cause
CPT/HCPCS: 70450; 72125; 80048; 85025; 85610; 85730; 99285; J7030

== ENCOUNTER 2017-02-15 16:24 | Emergency (ER) | payer MEDICARE ==
[~2017-02-15] VITALS: Ht 172.7 cm; Wt 60.0 kg
[2017-02-15 16:31] VITALS: Ht 172.7 cm; Wt 60.0 kg
[2017-02-15 18:48] VITALS: BP 110/78; PULSE 80; RESP 17
--- NOTE | 2017-02-15 19:04 | ERD ---
ER Documentation Chief Complaint Date/Time DATE: 02/15/17 TIME: 19:03 Chief Complaint wound recheck, stitches to the head HPI 76-year-old female presents for recheck on the scalp laceration sustained 2 days ago. Stitches were placed. She denies vomiting, fevers, neck pain, weakness. ROS All systems reviewed and are negative except as per history of present illness. Medications Home Meds Active Scripts Levothyroxine Sodium* (Synthroid*) 100 Mcg Tablet, 100 MCG PO BEFORE BREAKFAST, #30 TAB 1 Refill Prov:SYDNIE ALONSO MD 01/07/17 Furosemide (Lasix) 20 Mg Tab, 20 MG PO BID DIURETICS for 30 Days, #60 TAB Prov:SYDNIE ALONSO MD 01/07/17 Reported Medications Apixaban* (Eliquis*) 5 Mg Tablet, 5 MG PO BID, TAB 02/13/17 Levothyroxine Sodium* (Levothyroxine Sodium*) 100 Mcg Tablet, 100 MCG PO BEFORE BREAKFAST, #30 TAB 01/02/17 Amiodarone Hcl* (Amiodarone Hcl*) 200 Mg Tablet, 200 MG PO DAILY, #30 TAB 01/02/17 Carvedilol* (Carvedilol*) 3.125 Mg Tablet, 3.125 MG PO BID, #60 TAB 01/02/17 Discontinued Scripts Apixaban* (Eliquis*) 5 Mg Tablet, 2.5 MG PO BID for 30 Days, #60 TAB 1 Refill Prov:SYDNIE ALONSO MD 01/07/17 Allergies Allergies: Coded Allergies: losartan (Verified Allergy, Intermediate, difuse red blotchy rash, 02/15/17) PMhx/Soc History of Surgery: Yes (RT HIP SURGERY) Anesthesia Reaction: No 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 There is no erythema, warmth, bleeding, step-offs, Eyes: Normal Conjunctiva ENT: Normal External Ears, Nose and Mouth. Neck: Full range of motion..~ No meningismus.Neck nontender Resp: Clear to auscultation bilaterally Cardio: Regular rate and rhythm, no murmurs Abd: Soft, non tender, non distended. Normal bowel sounds Skin: No petechiae or rashes Back: No midline or flank tenderness Ext: No cyanosis, or edema Neur: Awake and alert Psych: Normal Mood and Affect Procedures/MDM Patient presents with a satisfactorily healing scalp laceration without signs of infection or complications or signs of symptoms to suggest significant head injury. She will discharged home with instructions for suture removal and 5-7 days. She should otherwise return sooner for new or worsening symptoms as directed after instructions. Departure Diagnosis: Primary Impression: Encounter for wound re-check Condition: Stable Patient Instructions: Wound Check, Lac F/U (No Infection) Additional Instructions: Recommend suture removal in 5-6 days. Recheck sooner for fevers, redness, new symptoms KJ BROWN MD Feb 15, 2017 19:04
== END 2017-02-15 18:49 | disposition home or self-care (01) ==
LOC: FTE 16:24
DX: Z48.01 Encounter for change or removal of surgical wound dressing (principal); I50.9 Heart failure, unspecified; I10 Essential (primary) hypertension
CPT/HCPCS: 99281

== ENCOUNTER 2017-02-22 12:26 | Emergency (ER) | payer MEDICARE ==
[~2017-02-22] VITALS: Wt 80.0 kg
--- NOTE | 2017-02-22 14:04 | ERD ---
ER Documentation Chief Complaint Date/Time DATE: 02/22/17 TIME: 14:00 Chief Complaint PT HERE FOR SUTURE REMOVAL ON HEAD LAC REPAIR HPI This is a 76-year-old female that presents to the ER for suture removal of her head sutures. The patient has not had any pain and states she has been feeling well. She has not had any fevers or chills. There is no discharge from the area. ROS 12 point review of systems was done, all negative except per HPI. Medications Home Meds Active Scripts Levothyroxine Sodium* (Synthroid*) 100 Mcg Tablet, 100 MCG PO BEFORE BREAKFAST, #30 TAB 1 Refill Prov:SYDNIE ALONSO MD 01/07/17 Furosemide (Lasix) 20 Mg Tab, 20 MG PO BID DIURETICS for 30 Days, #60 TAB Prov:SYDNIE ALONSO MD 01/07/17 Reported Medications Apixaban* (Eliquis*) 5 Mg Tablet, 5 MG PO BID, TAB 02/13/17 Levothyroxine Sodium* (Levothyroxine Sodium*) 100 Mcg Tablet, 100 MCG PO BEFORE BREAKFAST, #30 TAB 01/02/17 Amiodarone Hcl* (Amiodarone Hcl*) 200 Mg Tablet, 200 MG PO DAILY, #30 TAB 01/02/17 Carvedilol* (Carvedilol*) 3.125 Mg Tablet, 3.125 MG PO BID, #60 TAB 01/02/17 Allergies Allergies: Coded Allergies: losartan (Verified Allergy, Intermediate, difuse red blotchy rash, 02/22/17 ) PMhx/Soc History of Surgery: Yes (RT HIP SURGERY) Anesthesia Reaction: No 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 HEENT: Atraumatic. There is a 2cm *3cm healing Occipital hematoma. She has been placed, there is a lot of scabbing secondary to dry blood. CHEST: Clear to auscultation bilaterally. There are no rales, wheezes or rhonchi. HEART: Regular rate and rhythm. No murmurs, clicks, rubs or gallops. NEURO: Alert and oriented. Procedures/MDM Suture Removal by me: Sutures removed with tweezers and scissors without incident. Wound shows no evidence of infection, foreign body, neurologic injury, vascular injury, open joint or tendon laceration. Patient to follow up PRN. Departure Diagnosis: Primary Impression: Encounter for removal of sutures Condition: Stable Patient Instructions: Suture Removal, No Complication Additional Instructions: Call your primary care doctor TOMORROW for an appointment during the next 1-2 days.See the doctor sooner or return here if your condition worsens before your appointment time. JEFFERSON MOREIRA Feb 22, 2017 14:04
== END 2017-02-22 14:09 | disposition home or self-care (01) ==
LOC: FTE 12:26
DX: Z48.02 Encounter for removal of sutures (principal); I50.9 Heart failure, unspecified; I10 Essential (primary) hypertension
CPT/HCPCS: 99281

== ENCOUNTER 2017-03-14 00:57 | Inpatient (IN) | END 2017-03-14 07:55 | disposition EXP | DRG 208 | DX: J96.00 Acute respiratory failure, unspecified whether with hypoxia or hypercapnia (principal); R57.9 Shock, unspecified; I71.01 Dissection of thoracic aorta; I50.23 Acute on chronic systolic (congestive) heart failure; N17.9 Acute kidney failure, unspecified; E87.2 Acidosis; I13.0 Hypertensive heart and chronic kidney disease with heart failure and stage 1 through stage 4 chronic kidney disease, or unspecified chronic kidney disease; E87.5 Hyperkalemia; Z66 Do not resuscitate; R00.0 Tachycardia, unspecified; D64.9 Anemia, unspecified; I46.9 Cardiac arrest, cause unspecified; N18.9 Chronic kidney disease, unspecified ==